=== PATIENT | male | born 1935 | race Caucasian/White ===

== ENCOUNTER → 2016-04-22 | Outpatient (CLI) | payer OTHER ==
[2016-04-22 17:31] LABS: BASO % 0.2 %; BASO ABS # 0.02 K/uL (0-0.2); COMPLETE YES; EOS % 1.1 %; HEMATOCRIT 41.5 % (42-52); IG% 0.2 %; LYMPH ABS # 3.02 K/uL (1.2-3.4); MEAN CELL VOLUME 93.7 fL (80-100); MEAN CORPUSCULAR HEMOGLOBIN 32.1 pg (25-34); MEAN CORPUSCULAR HGB CONC 34.2 g/dl (32-36); MEAN PLATELET VOLUME 10.3 fL (7.4-10.4); NEUT % 66.5 %; PLATELET COUNT 301 K/uL (130-400); RED BLOOD COUNT 4.43 M/uL (4.7-6.1)
[2016-04-22 17:35] LABS: ALT/SGPT 30 U/L (12-78); AST/SGOT 26 U/L (15-37); BLOOD UREA NITROGEN 21 mg/dl (7-18); BUN/CREATININE RATIO 18.8 (10-20); CALCIUM 9.1 mg/dl (8.5-10.1); CARBON DIOXIDE 28 mmol/L (21-32); CHLORIDE 104 mmol/L (98-107); GLUCOSE 83 mg/dl (70-99); POTASSIUM 3.8 mmol/L (3.5-5.1); SODIUM 141 mmol/L (136-145)
[2016-04-22 17:46] LABS: ALKALINE PHOSPHATASE 106 U/L (45-117); CHOLESTEROL 216 mg/dl (0-200); CHOLESTEROL/HDL RATIO 4.5; HDL CHOLESTEROL 48 mg/dl; LDL CHOLESTEROL CALCULATED 141 mg/dl; TRIGLYCERIDES 135 mg/dl (0-150); VERY LOW DENSITY LIPOPROT CALC 27 mg/dl
--- NOTE | 2016-05-03 09:53 | CODING QUERY MEDICAL NECESSITY ---
CQSUPPORTING DIAGNOSIS NEEDED A supporting diagnosis is required for the test/procedure performed on this patient in order for us to be reimbursed by the patient's insurance. Please provide a supporting diagnosis for the following test/procedure listed below next to the test name along with your signature. *If there is no additional diagnosis for this patient that would support the following test/procedure please document that below next to the test/procedure. Test(s)/Procedure(s) that require a supporting diagnosis: DOS 04/22/16 PROSTATE SPECIFIC TEST (PSA) Provider Signature: Date: Thank you [facility] Once completed, please kindly fax back to [phone] For questions please call [phone]
== END | disposition home or self-care (01) ==
LOC: C.LABPBG 14:57
PROVIDERS: ATTEND Neuromusculoskeletal Medicine & OMM
DX: Z00.00 Encounter for general adult medical examination without abnormal findings (principal); I10 Essential (primary) hypertension; Z12.5 Encounter for screening for malignant neoplasm of prostate

== ENCOUNTER → 2016-05-10 | Outpatient (CLI) | payer OTHER ==
--- NOTE | 2016-05-10 15:21 | ECHOCARDIOGRAM REPORT ---
*NOTICE TO RECEIVING [employer] This information is strictly Confidential and protected under [place] law. [place] law prohibits you from making any further disclosure of this information unless further disclosure is expressly permitted by the written consent of the person to whom it pertains or is authorized by law. A general authorization for the release of medical or other information is not sufficient for this purpose. Hospital accepts no responsibility if the information is made available to any other person, INCLUDING THE PATIENT. Interpretation Summary * Name: NIRANJAN WAGNER Study Date: 05/10/2016 01:19 PM BP: 179/66 mmHg * Patient Location: [facility] HR: 68 * : 1935 (M/d/yyyy) Gender: Male * Age: 81 yrs Ethnicity: [place] Weight: 165 lb * Ordering Physician: GERALD SHARPE DO * Performed By: Maura Sharpe/ Rema Fortune * * Reason For Study: CYSTOLIC EJECTION MURMUR * Hyperdynamic left ventricular systolic function. * Moderate concentric left ventricular hypertrophy. * Left ventricular diastolic dysfunction. * Mild aortic root diltation. * Moderate - Severe calcific aortic stenosis. * Trace aortic regurgitation. * Trace mitral and tricuspid regurgitation. * Mild pulmonary hypertension. 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 Procedure Details * A complete two-dimensional transthoracic echocardiogram was performed (2D, M-mode, Doppler and color flow Doppler). Left Ventricle * The left ventricle is normal in size. * There is moderate concentric left ventricular hypertrophy. * A full diastolic examination was done with clinical findings of Class I diastolic dysfunction. * Ejection Fraction = >70 %. * The left ventricle is hyperdynamic. * No regional wall motion abnormalities noted. Right Ventricle * The right ventricle is normal in size and function. Atria * The left atrial size is normal. * Right atrial size is normal. * No ASD detected; PFO is not assessed. Mitral Valve * There is mild mitral annular calcification. * There is no mitral valve stenosis. * There is trace mitral regurgitation. Tricuspid Valve * The tricuspid valve is normal. * There is no tricuspid stenosis. * There is trace tricuspid regurgitation. * Right ventricular systolic pressure is elevated at 30-40mmHg. Aortic Valve * The aortic valve is calcified and has decreased opening on 2 D imaging. * There is severe calcific aortic valve stenosis. * Aortic valve area was calculated at 1.3 cm\S\2 using the continuity equation. * Based on the appearance of the AV on 2 D imaging and the mean gradient across the valve there is severe aortic stenosis. * Moderate to severe valvular aortic stenosis. * Trace aortic regurgitation. Pulmonic Valve * The pulmonary valve is inadequately visualized, but the Doppler data is adequate for interpretation. * There is no pulmonic valvular stenosis. * There is no significant pulmonary regurgitation. Great Vessels * Mild aortic root dilatation. MMode 2D Measurements and Calculations IVSd 1.6 cm IVSs 2.3 cm LVIDd 4.0 cm LVIDs 2.5 cm LVPWd 1.5 cm LVPWs 2.3 cm IVS/LVPW 1.1 FS 37.5 % EDV(Teich) 71.6 ml ESV(Teich) 22.9 ml EF(Teich) 68.1 % EDV(cubed) 65.8 ml ESV(cubed) 16.1 ml EF(cubed) 75.6 % % IVS thick 44.8 % % LVPW thick 59.5 % LV mass(C)d 239.1 grams LV mass(C)s 287.5 grams SV(Teich) 48.7 ml SV(cubed) 49.7 ml Ao root diam 4.1 cm Ao root area 13.0 cm\S\2 ACS 1.3 cm LA dimension 3.6 cm asc Aorta Diam 3.3 cm LA/Ao 0.88 LVOT diam 2.2 cm LVOT area 3.7 cm\S\2 LVAd ap4 34.4 cm\S\2 LVLd ap4 8.8 cm EDV(MOD-sp4) 107.3 ml EDV(sp4-el) 114.1 ml LVAs ap4 15.0 cm\S\2 LVLs ap4 6.5 cm ESV(MOD-sp4) 33.6 ml ESV(sp4-el) 29.6 ml EF(MOD-sp4) 68.7 % EF(sp4-el) 74.1 % LVAd ap2 29.1 cm\S\2 LVLd ap2 9.1 cm EDV(MOD-sp2) 76.4 ml EDV(sp2-el) 78.9 ml LVAs ap2 13.6 cm\S\2 LVLs ap2 7.1 cm ESV(MOD-sp2) 23.6 ml ESV(sp2-el) 22.0 ml EF(MOD-sp2) 69.1 % EF(sp2-el) 72.1 % LVLd %diff 3.1 % EDV(MOD-bp) 89.4 ml LVLs %diff 9.2 % ESV(MOD-bp) 29.6 ml EF(MOD-bp) 66.8 % SV(MOD-sp4) 73.7 ml SV(MOD-sp2) 52.8 ml SV(MOD-bp) 59.8 ml SV(sp4-el) 84.5 ml SV(sp2-el) 56.8 ml Doppler Measurements and Calculations MV E max joo 94.5 cm/sec MV A max joo 109.7 cm/sec MV E/A 0.86 MV dec time 0.28 sec Ao V2 max 518.1 cm/sec Ao max PG 107.4 mmHg Ao max PG (full) 93.8 mmHg Ao V2 mean 332.1 cm/sec Ao mean PG 51.1 mmHg Ao V2 VTI 108.7 cm DALE(V,A) 1.3 cm\S\2 DALE(V,D) 1.3 cm\S\2 AI max joo 471.9 cm/sec AI max PG 89.3 mmHg AI dec slope 400.2 cm/sec\S\2 AI P1/2t 345.3 msec LV V1 max PG 13.6 mmHg LV V1 max 184.4 cm/sec MR max joo 726.9 cm/sec MR max PG 211.3 mmHg SV(Ao) 1410.8 ml PA V2 max 103.0 cm/sec PA max PG 4.2 mmHg TR max joo 269.8 cm/sec
== END | disposition home or self-care (01) ==
LOC: C.CPL 13:05
PROVIDERS: ATTEND Neuromusculoskeletal Medicine & OMM
DX: R01.1 Cardiac murmur, unspecified (principal)

== ENCOUNTER → 2017-05-20 | Outpatient (CLI) | payer OTHER ==
[2017-05-20 12:48] LABS: ALBUMIN 3.7 gm/dl (3.4-5.0); ALT/SGPT 31 U/L (12-78); AST/SGOT 30 U/L (15-37); BLOOD UREA NITROGEN 34 mg/dl (7-18); CALCIUM 9.2 mg/dl (8.5-10.1); CARBON DIOXIDE 29 mmol/L (21-32); CREATININE 1.27 mg/dl (0.60-1.40); GLUCOSE 102 mg/dl (70-99); POTASSIUM 3.7 mmol/L (3.5-5.1); SODIUM 137 mmol/L (136-145)
[2017-05-20 12:53] LABS: ALKALINE PHOSPHATASE 81 U/L (45-117); CHOLESTEROL 213 mg/dl (0-200); LDL CHOLESTEROL CALCULATED 150 mg/dl; TOTAL PROTEIN 7.8 gm/dl (6.4-8.2)
== END | disposition home or self-care (01) ==
LOC: C.LABPBG 07:58
PROVIDERS: ATTEND Neuromusculoskeletal Medicine & OMM
DX: Z00.00 Encounter for general adult medical examination without abnormal findings (principal); I12.9 Hypertensive chronic kidney disease with stage 1 through stage 4 chronic kidney disease, or unspecified chronic kidney disease; R97.20 Elevated prostate specific antigen [PSA]

== ENCOUNTER 2019-04-22 16:32 | Inpatient (IN) ==
[2019-04-22 17:06] LABS: Basophils # (auto) 0.02 K/uL (0-0.2); Basophils % (auto) 0.2 %; Eosinophils # (auto) 0.17 K/uL (0-0.5); Eosinophils % (auto) 1.6 %; Hematocrit (blood only) 35.8 % (42-52); Hemoglobin 11.7 g/dL (14.0-18.0); Immature Granulocytes # (auto) 0.02 K/uL (0.00-0.02); Immature Granulocytes % (auto) 0.2 %; Lymphocytes # (auto) 2.48 K/uL (1.2-3.4); Mean Corpuscular Hemoglobin 31.5 pg (25-34); Mean Corpuscular Hgb Conc 32.7 g/dL (32-36); Mean Corpuscular Volume 96.5 fL (80-100); Mean Platelet Volume 10.4 fL (7.4-10.4); Monocytes # (auto) 0.61 K/uL (0.11-0.59); Monocytes % (auto) 5.9 %; Neutrophils # (auto) 7.02 K/uL (1.4-6.5); Neutrophils % (auto) 68.1 %; Platelet Count 231 K/uL (130-400); RDW Coefficient of Variation 13.9 % (11.5-14.5); RDW Standard Deviation 48.7 fL (36.4-46.3); Red Blood Count 3.71 M/uL (4.7-6.1); White Blood Count 10.32 K/uL (4.8-10.8)
[2019-04-22] MEDS ORDERED: SODIUM CHLORIDE 0.9% 1000ML 500 ML IV ONE (17:07)
--- NOTE | 2019-04-22 17:07 | XRay Report ---
SINGLE VIEW CHEST CLINICAL HISTORY: Generalized weakness. FINDINGS: An AP, portable, upright chest radiograph is obtained. No prior studies are available for c omparison at the time of dictation. The examination is degraded by portable technique and patient rot ation. The heart is enlarged noting atherosclerotic calcification of the thoracic aorta. The pulmona ry vasculature is noncongested. There is mild elevation of right hemidiaphragm and bibasilar atelecta sis. No airspace consolidation or large pleural effusion is identified. No pneumothorax is seen. The skeletal structures are osteopenic. 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 Th ere are healed left-sided rib fractures. IMPRESSION: Cardiomegaly with no acute cardiopulmonary abnormality. ACT 112: Negative or not required by law. Electronically signed by: Dick Ness M.D. 04/22/2019 5:06 PM
[2019-04-22 17:14] LABS: INR 1.1 (0.9-1.1); Prothrombin Time 11.1 Seconds (9.0-12.0)
--- NOTE | 2019-04-22 17:18 | CT Scan Report ---
CT SCAN OF THE BRAIN WITHOUT IV CONTRAST CLINICAL HISTORY: Syncope. Change in mental status. COMPARISON STUDY: CT of the brain dated 02/09/2019. TECHNIQUE: Unenhanced axial CT scan of the brain is performed from the vertex to the skull base. A do se lowering technique was utilized adhering to the principles of ALARA. CT DOSE: 537.48 mGy.cm FINDINGS: Brain parenchyma: There are age-related involutional changes noting moderate to advanced subcortical and periventricular microangiopathic change. There is no hemorrhage, mass effect, or evidence of acu te territorial ischemia by CT criteria. Fitzpatrick-white matter differentiation is preserved. No extra-axia l fluid collection is seen. Ventricles, sulci, cisterns: Prominent secondary to involutional change. Intracranial vasculature: There is atherosclerotic calcification of the cavernous carotid arteries. Calvarium: Unremarkable. Sinuses and mastoids: The visualized paranasal sinuses are clear. The mastoid air cells are well pneu matized. Orbits: The bony orbits are grossly intact. IMPRESSION: There is no hemorrhage, mass effect, or evidence of acute territorial ischemia by CT komal alberto. ACT 112: Negative or not required by law. Electronically signed by: Dick Ness M.D. 04/22/2019 5:17 PM
[2019-04-22 17:24] LABS: Albumin Level 3.3 gm/dl (3.4-5.0); BUN Creatinine Ratio 17.2 (10-20); Calcium 9.1 mg/dl (8.5-10.1); Creatinine Clr Calc Pharmacy 51.2 ml/min; Est GFR (Non-African American) 51.8; Potassium 3.3 mmol/L (3.5-5.1)
[2019-04-22 17:35] LABS: Albumin Globulin Ratio 0.9 (0.9-2); Bilirubin,Total 0.4 mg/dl (0.2-1); Globulin 3.8 gm/dl (2.5-4.0); Thyroid Stimulating Hormone 3.49 uIu/ml (0.300-4.500); Total Protein 7.1 gm/dl (6.4-8.2); Troponin I 0.041 ng/ml (0-0.045)
[2019-04-22 18:00] LABS: Appearance Urine Cloudy (Clear); Bacteria Urine Automated Negative (Negative); Bilirubin Urine Negative (Negative); Blood Urine Negative (Negative); Color Urine Yellow; Glucose Urine UA Negative (Negative); Ketones Urine Negative (Negative); Leukocyte Esterase Urine Negative (Negative); Nitrite Urine Negative (Negative); Protein Urine Negative (Negative); RBC Urine Automated 0-4 /hpf (0-4); Specific Gravity Urine 1.014 (1.000-1.030); Urobilinogen Urine Negative (Negative)
[2019-04-22 20:25] LABS: Troponin I 0.192 ng/ml (0-0.045)
[2019-04-22] MEDS ORDERED: ASPIRIN 81 MG CHEW PO STA (20:35)
[2019-04-22] MEDS ORDERED: LORazepam 2 MG/4 ML VIAL ONE (20:43)
[2019-04-22] MEDS ORDERED: HALOPERIDOL LACTATE 5 MG/ML 1 ML VIAL ONE (20:44)
[2019-04-22] MEDS ORDERED: HALOPERIDOL LACTATE 5 MG/ML 1 ML VIAL IV STA (21:13)
[2019-04-22] MEDS ORDERED: LORazepam 2 MG/4 ML VIAL IV STA (21:13)
--- NOTE | 2019-04-22 21:54 | Emergency Department Note ---
Entered by Shahriar Aponte acting as a scribe for Les Santoro M.D. History of Present Illness General Chief complaint: Altered Mental Status Stated complaint: AMS Time Seen by Provider: 04/22/19 16:35 Source: patient and family (daughter) History of Present Illness Onset (ago): hour(s) (earlier today) Location: head (AMS) Pain Consistency: + other (worsening) Relieved By: + none Associated symptoms: + denies other symptoms (pain) and + other (shaking, fitzpatrick i n appearance, drooling) The patient is a 84 year old M who presents to the Emergency Room with complaints of worsening altered mental status that occurred earlier today. The HPI was provided by the patients daughter. The patients daughter states that the patient lives by himself. She notes that today, she decided to walk the patient to her house which is 5 blocks away. She states that after walking, the patient told her that he was not feeling well. She notes that the patient was o ff balance. She adds that the patient looked fitzpatrick, was drooling, and was shaking. She states that the patient almost fell so she caught the patient and laid him on the ground. She denies that the patient hit his head. She notes that the patient has a history of dementia, hallucinations, and aortic stenosis. The patient states that it is hard to remember what happened. He adds that he remember walking. He notes that he has never passed out from walking. He denies that he is currently experiencing pain. The HPI is limited due to the patients history of dementia. Home Medications Home Medications Medication Instructions Recorded Confirmed Type multivitamin 1 tab PO QAM #30 tab 11/06/18 04/22/19 Rx aspirin [Adult Low Dose Aspirin] 81 mg PO QAM 04/22/19 04/22/19 History donepezil 5 mg PO QAM 04/22/19 04/22/19 History furosemide 40 mg PO QAM 04/22/19 04/22/19 History lisinopril 30 mg PO QAM 04/22/19 04/22/19 History Allergies Allergy/AdvReac Type Severity Reaction Status Date / Time No Known Allergies Allergy Verified 04/22/19 18:39 Past Med/Surg History Social History Preferred Language: [place] Communication Ability: Effective Visual Impairment: Limited Hearing Ability: Normal Beliefs That Will Affect Care: None marital status: / Current Living Situation: Alone current occupational status: retired Feels Safe at Home: Yes Smoking Status: Unknown if ever smoked Hx Alcohol Use: No Hx Substance Use: No Childhood Exposure to Second-Hand Smoke: Yes caffeine: No during the past year weight has: remained stable Dental Care, Regularly: Yes Physical Activity Frequency: Does not Exercise Seatbelt Use: always Sunscreen Use: Yes Review of Systems See HPI for pertinent positives & negatives. The ROS is limited due to the patients history of dementia. Physical Exam Vital Signs Vital Signs - 24 hr 04/22/19 16:30 04/22/19 16:36 04/22/19 16:43 Temperature 36.3 C L Temperature Source Oral Pulse Rate 65 67 Pulse Rate from SpO2 Sensor 60 Pulse Rhythm Regular Pulse Strength Normal Respiratory Rate 20 18 Respiratory Effort / Characteristics Non-Labored Spontaneous Respiratory Depth Normal Respiratory Pattern Regular Blood Pressure 125/60 125/60 Blood Pressure Mean 81 89 Blood Pressure Position Lying Pulse Oximetry 95 96 98 Oxygen Delivery Method Room Air Room Air Sepsis Recent Fever Within 48 Hours No Sepsis New/Unexplained Change in Mental Status No Sepsis Action Taken by Nursing No Action Required 04/22/19 17:00 04/22/19 18:00 04/22/19 19:02 Temperature Temperature Source Pulse Rate 70 69 68 Pulse Rate from SpO2 Sensor 71 69 69 Pulse Rhythm Pulse Strength Respiratory Rate 23 17 18 Respiratory Effort / Characteristics Respiratory Depth Respiratory Pattern Blood Pressure 116/56 L 94/41 L 110/56 L Blood Pressure Mean 88 51 70 Blood Pressure Position Pulse Oximetry 99 98 96 Oxygen Delivery Method Sepsis Recent Fever Within 48 Hours Sepsis New/Unexplained Change in Mental Status Sepsis Action Taken by Nursing 04/22/19 19:30 04/22/19 20:00 04/22/19 20:15 Temperature Temperature Source Pulse Rate 56 L 61 61 Pulse Rate from SpO2 Sensor 57 L Pulse Rhythm Pulse Strength Respiratory Rate 16 17 18 Respiratory Effort / Characteristics Respiratory Depth Respiratory Pattern Blood Pressure 122/58 L 142/57 H Blood Pressure Mean 87 65 Blood Pressure Position Pulse Oximetry 94 Oxygen Delivery Method Sepsis Recent Fever Within 48 Hours Sepsis New/Unexplained Change in Mental Status Sepsis Action Taken by Nursing 04/22/19 20:30 04/22/19 20:50 04/22/19 20:58 Temperature Temperature Source Pulse Rate 64 Pulse Rate from SpO2 Sensor Pulse Rhythm Pulse Strength Respiratory Rate 16 28 H 25 H Respiratory Effort / Characteristics Respiratory Depth Respiratory Pattern Blood Pressure 144/58 H 95/46 L Blood Pressure Mean 95 60 Blood Pressure Position Pulse Oximetry Oxygen Delivery Method Sepsis Recent Fever Within 48 Hours Sepsis New/Unexplained Change in Mental Status Sepsis Action Taken by Nursing 04/22/19 21:00 04/22/19 21:01 04/22/19 21:15 Temperature Temperature Source Pulse Rate 66 57 L Pulse Rate from SpO2 Sensor 71 Pulse Rhythm Pulse Strength Respiratory Rate 18 20 17 Respiratory Effort / Characteristics Respiratory Depth Respiratory Pattern Blood Pressure 116/50 L Blood Pressure Mean 65 Blood Pressure Position Pulse Oximetry 93 Oxygen Delivery Method Sepsis Recent Fever Within 48 Hours Sepsis New/Unexplained Change in Mental Status Sepsis Action Taken by Nursing GENERAL: Awake, alert, well-appearing, in no distress HENT: Normocephalic, atraumatic. EYES: Normal conjunctiva. Sclera non-icteric. NECK: Supple. No nuchal rigidity. RESPIRATORY: Clear to auscultation. No wheezes. Normal respiratory effort. CARDIAC: Normal rate. Normal rhythm. Extremities warm and well perfused. GI: Soft, non-distended. No tenderness to palpation. MUSCULOSKELETAL: Atraumatic. Chest examination reveals no tenderness. LOWER EXTREMITIES: Calves are equal size bilaterally and non-tender. No edema NEURO: Alert, no slurred speech, pleasant. Oriented to birthday and person. Not oriented to event, place, or time. No gross sensory or motor deficits noted. SKIN: Warm and dry. No rash or jaundice noted. Course Course 1635: The patient was evaluated in room C7. A complete history and physical exam was performed. 2031: I updated the patient and his daughter on his test results and plan for admission. They were agreeable with the plan. 2040: I reviewed the patient's case with Dr. Nicki Richmond, [facility] Hospitalist. She will evaluate the patient for further management. 2052: The patient started to get combative. Chemical restraints were used on the patient. Administered Medications Discontinued Medications Aspirin (Aspirin Chew) 324 mg PO NOW STA Stop: 04/22/19 20:36 Last Admin: 04/22/19 20:59 Dose: 324 mg Documented by: [id number] Haloperidol Lactate (Haldol) Confirm Administered Dose 10 mg .ROUTE .K-MED ONE Stop: 04/22/19 20:45 Last Admin: 04/22/19 20:55 Dose: 2.5 mg Documented by: [id number] Haloperidol Lactate (Haldol) 2.5 mg IV NOW STA Stop: 04/22/19 21:14 Last Admin: 04/22/19 21:17 Dose: Not Given Documented by: [id number] Sodium Chloride (Nss 1000ml) 500 mls @ 999 mls/hr IV .Q31M ONE Stop: 04/22/19 17:37 Last Infusion: 04/22/19 17:55 Dose: 0 mls/hr Documented by: [id number] Admin: 04/22/19 17:19 Dose: 999 mls/hr Documented by: [id number] Lorazepam (Ativan) 2 mg in 4 mls @ 4 mls/min IV NOW STA Stop: 04/22/19 21:14 Last Admin: 04/22/19 21:17 Dose: Not Given Documented by: [id number] Lorazepam (Ativan) Confirm Administered Dose 2 mg .ROUTE .STK-MED ONE Stop: 04/22/19 20:44 Last Admin: 04/22/19 20:47 Dose: 2 mg Documented by: [id number] Critical Care Time Critical Care Time: Yes Total Critical Care Time: 50 I have personally spent 50 minutes of critical care time in the direct management of this patient. This includes bedside care, interpretation of diagnostic studies, and testing, discussion with consultants, patient, and family members, and other required patient management activities. This 50 minutes is in excess of all separately billable procedures. Medical Decision Making Differential Diagnosis Differential diagnosis: Etiologies such as vasovagal event, infection, hypoglycemia, electrolyte abnormalities, cardiac sources, intracerebral event, toxicologic, neurologic, as well as others were entertained. Medical Records Attestation: I reviewed the patient's medical records. Home Medications Current Medication List: was personally reviewed by me Laboratory Data Attestation: I reviewed the patient's lab results. Result diagrams: 04/22/19 16:52 04/22/19 16:52 Lab Results 04/22/19 04/22/19 04/22/19 Range/Units 16:52 16:52 16:52 WBC 10.32 (4.8-10.8) K/uL RBC 3.71 L (4.7-6.1) M/uL Hgb 11.7 L (14.0-18.0) g/dL Hct 35.8 L (42-52) % MCV 96.5 (80-100) fL MCH 31.5 (25-34) pg MCHC 32.7 (32-36) g/dL RDW Std Deviation 48.7 H (36.4-46.3) fL RDW Coeff of Rk 13.9 (11.5-14.5) % Plt Count 231 (130-400) K/uL MPV 10.4 (7.4-10.4) fL Immature Gran % (Auto) 0.2 % Neut % (Auto) 68.1 % Lymph % (Auto) 24.0 % Ross % (Auto) 5.9 % Eos % (Auto) 1.6 % Baso % (Auto) 0.2 % Immature Gran # (Auto) 0.02 (0.00-0.02) K/uL Neut # (Auto) 7.02 H (1.4-6.5) K/uL Lymph # (Auto) 2.48 (1.2-3.4) K/uL Ross # (Auto) 0.61 H (0.11-0.59) K/uL Eos # (Auto) 0.17 (0-0.5) K/uL Baso # (Auto) 0.02 (0-0.2) K/uL PT 11.1 (9.0-12.0) Seconds INR 1.1 (0.9-1.1) Sodium 144 (136-145) mmol/L Potassium 3.3 L (3.5-5.1) mmol/L Chloride 108 H (98-107) mmol/L Carbon Dioxide 30 (21-32) mmol/L Anion Gap 5.0 (3-11) BUN 22 H (7-18) mg/dl Creatinine 1.28 (0.6-1.4) mg/dl Est Cr Clr Drug Dosing 51.2 ml/min Est GFR ( Amer) 60.0 Est GFR (Non-Af Amer) 51.8 BUN/Creatinine Ratio 17.2 (10-20) Glucose 96 (70-99) mg/dl Lactate (0.4-2.0) mmol/L Calcium 9.1 (8.5-10.1) mg/dl Magnesium 2.0 (1.8-2.4) mg/dl Total Bilirubin 0.4 (0.2-1) mg/dl AST 30 (15-37) U/L ALT 24 (12-78) U/L Alkaline Phosphatase 87 (45-117) U/L Troponin I 0.041 (0-0.045) ng/ml Total Protein 7.1 (6.4-8.2) gm/dl Albumin 3.3 L (3.4-5.0) gm/dl Globulin 3.8 (2.5-4.0) gm/dl Albumin/Globulin Ratio 0.9 (0.9-2) TSH 3.490 (0.300-4.500) uIu/ml Urine Color Urine Appearance (Clear) Urine pH (4.5-7.5) Ur Specific [place] (1.000-1.030) Urine Protein (Negative) Urine Glucose (UA) (Negative) Urine Ketones (Negative) Urine Blood (Negative) Urine Nitrite (Negative) Urine Bilirubin (Negative) Urine Urobilinogen (Negative) Ur Leukocyte Esterase (Negative) Urine WBC (Auto) (0-5) /hpf Urine RBC (Auto) (0-4) /hpf U Hyaline Cast (Auto) (0-5) /lpf U Epithel Cells (Auto) (0-5) /lpf Urine Bacteria (Auto) (Negative) 04/22/19 04/22/19 04/22/19 Range/Units 16:52 17:31 19:03 WBC (4.8-10.8) K/uL RBC (4.7-6.1) M/uL Hgb (14.0-18.0) g/dL Hct (42-52) % MCV (80-100) fL MCH (25-34) pg MCHC (32-36) g/dL RDW Std Deviation (36.4-46.3) fL RDW Coeff of Rk (11.5-14.5) % Plt Count (130-400) K/uL MPV (7.4-10.4) fL Immature Gran % (Auto) % Neut % (Auto) % Lymph % (Auto) % Ross % (Auto) % Eos % (Auto) % Baso % (Auto) % Immature Gran # (Auto) (0.00-0.02) K/uL Neut # (Auto) (1.4-6.5) K/uL Lymph # (Auto) (1.2-3.4) K/uL Ross # (Auto) (0.11-0.59) K/uL Eos # (Auto) (0-0.5) K/uL Baso # (Auto) (0-0.2) K/uL PT (9.0-12.0) Seconds INR (0.9-1.1) Sodium (136-145) mmol/L Potassium (3.5-5.1) mmol/L Chloride (98-107) mmol/L Carbon Dioxide (21-32) mmol/L Anion Gap (3-11) BUN (7-18) mg/dl Creatinine (0.6-1.4) mg/dl Est Cr Clr Drug Dosing ml/min Est GFR ( Amer) Est GFR (Non-Af Amer) BUN/Creatinine Ratio (10-20) Glucose (70-99) mg/dl Lactate 1.7 (0.4-2.0) mmol/L Calcium (8.5-10.1) mg/dl Magnesium (1.8-2.4) mg/dl Total Bilirubin (0.2-1) mg/dl AST (15-37) U/L ALT (12-78) U/L Alkaline Phosphatase (45-117) U/L Troponin I 0.192 H* (0-0.045) ng/ml Total Protein (6.4-8.2) gm/dl Albumin (3.4-5.0) gm/dl Globulin (2.5-4.0) gm/dl Albumin/Globulin Ratio (0.9-2) TSH (0.300-4.500) uIu/ml Urine Color Yellow Urine Appearance Cloudy A (Clear) Urine pH 8.0 H (4.5-7.5) Ur Specific [place] 1.014 (1.000-1.030) Urine Protein Negative (Negative) Urine Glucose (UA) Negative (Negative) Urine Ketones Negative (Negative) Urine Blood Negative (Negative) Urine Nitrite Negative (Negative) Urine Bilirubin Negative (Negative) Urine Urobilinogen Negative (Negative) Ur Leukocyte Esterase Negative (Negative) Urine WBC (Auto) 1-5 (0-5) /hpf Urine RBC (Auto) 0-4 (0-4) /hpf U Hyaline Cast (Auto) 1-5 (0-5) /lpf U Epithel Cells (Auto) 10-20 H (0-5) /lpf Urine Bacteria (Auto) Negative (Negative) Imaging Data Radiologist's Impression: Radiology results as stated below per my review and the radiologist's interpretation: SINGLE VIEW CHEST CLINICAL HISTORY: Generalized weakness. FINDINGS: An AP, portable, upright chest radiograph is obtained. No prior studies are available for comparison at the time of dictation. The examination is degraded by portable technique and patient rotation. The heart is enlarged noting atherosclerotic calcification of the thoracic aorta. The pulmonary vas culature is noncongested. There is mild elevation of right hemidiaphragm and bibasilar atelectasis. No airspace consolidation or large pleural effusion is identified. No pneumothorax is seen. The skeletal structures are osteopenic. 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 There are healed left-sided rib fractures. IMPRESSION: Cardiomegaly with no acute cardiopulmonary abnormality. ACT 112: Negative or not required by law. Electronically signed by: Dick Ness M.D. 04/22/2019 5:[address] SCAN OF THE BRAIN WITHOUT IV CONTRAST CLINICAL HISTORY: Syncope. Change in mental status. COMPARISON STUDY: CT of the brain dated 02/09/2019. TECHNIQUE: Unenhanced axial CT scan of the brain is performed from the vertex to the skull base. A dose lowering technique was utilized adhering to the principles of ALARA. CT DOSE: 537.48 mGy.cm FINDINGS: Brain parenchyma: There are age-related involutional changes noting moderate to advanced subcortical and periventricular microangiopathic change. There is no hemorrhage, mass effect, or evidence of acute territorial ischemia by CT criteria. Fitzpatrick-white matter differentiation is preserved. No extra-axial fluid collection is seen. Ventricles, sulci, cisterns: Prominent secondary to involutional change. Intracranial vasculature: There is atherosclerotic calcification of the cav ernous carotid arteries. Calvarium: Unremarkable. Sinuses and mastoids: The visualized paranasal sinuses are clear. The mastoid air cells are well pneumatized. Orbits: The bony orbits are grossly intact. IMPRESSION: There is no hemorrhage, mass effect, or evidence of acute territorial ischemia by CT criteria. ACT 112: Negative or not required by law. Electronically signed by: Dick Ness M.D. 04/22/2019 5:17 PM ECG Data Attestation: I personally reviewed and interpreted this ECG as follows: Indication: + altered mental status Rate (beats per minute): 64 Rhythm: + sinus rhythm ECG Intervals/blocks: + First degree AV block and + Normal QT-c ECG ST segments: + T-wave inversions (aVL and V6); no ST elevation ECG Findings: no PVCs Comparison ECG Date: no prior available Additional Comments: 1899: second EKG: rate of 69 bpm, sinus rhythm with 1st degree AV block. No significant change from earlier EKG. Blood Pressure Blood Pressure Findings: Elevated blood pressure Blood Pressure Disposition: further management by hospitalist SERENE Crowe Continuous Cardiac Monitoring: An order was placed for continuous cardiac monitoring. The monitor shows a rate of 68 with NSR. Patient is a 84-year-old gentleman with a history of aortic stenosis, chronic kidney disease, hypertension, and dementia presented today via ambulance after a syncopal episode at home. Evidently walking with a family member outside she looked back and he was reaching for things in front of him that were not there then jerked several times went limp and fell to the ground looking pale. EMS was called. Upon arrival the patient was awake and following commands. This lasted maybe several minutes. EMS states he is otherwise been alert and pleasant for them. Limited history from the patient due to his underlying dementia. Has a history of hallucinations. Patient otherwise well recently. No significant trauma as failure state they lowered him to the ground. CT head without acute findings. Basic labs completed here without significant abnormalities. No significant finding on urinalysis. A detectable troponin is noted without significant prior values however with his renal dysfunction does not seem all that atypical. EKG questions may be some T wave inversions versus lateral ST depression. Patient again asymptomatic. Patient seems back at baseline at this point. I doubt this represents acute PE. Does not seem consistent with seizure. Possible cardiac syncope but continues cardiac monitoring here did not identify any significant abnormality. No significant thyroid dysfunction. Magnesium was normal limits. Potassium within normal limits. No evidence of acute kidney injury. Patient given again IV fluids. Delta troponin and EKG of 2 hours was completed. EKG appears unchanged however the troponin did elevate. Still denies CP/SOB. Given aspirin. Concerned this co uld represent again further cardiac etiology. Believe further inpatient treatments are needed and family is in agreement. Patient with his dementia however does not seem to quite understand and began to try to get out of bed and come after staff. For his and staff safety patient received Ativan and Haldol with improvement and he was redirected to the bed. Took 324mg aspirin. Will defer additional full anticoagulation with heparin at this time given his fall and safety risk. One-to-one will be needed. Discussed with the hospitalist who will evaluate further inpatient treatment. Impression & Plan Non-ST elevation [place] (NSTEMI), Syncope, Combative behavior Discharge Plan Visit Data Chief Complaint: Altered Mental Status Stated Complaint: [facility] ED Provider: Les Santoro Discharge Problem: Non-ST elevation [place] (NSTEMI), Syncope, Combative behavior Discharge Instructions Interventions: ED Discharge Assessment Last Done: 04/22/19 21:40 Discharge Problem: Syncope Qualifiers: Syncope type: unspecified Qualified Code(s): R55 - Syncope and collapse The scribe's documentation has been prepared under my direction and personally reviewed by me in its entirety. I confirm that the note above accurately reflects all work, treatment, procedures, and medical decision making performed by me.
[2019-04-22] MEDS ORDERED: ACETAMINOPHEN 325 MG TAB PO PRN (21:58)
[2019-04-22] MEDS ORDERED: DOCUSATE SODIUM 100 MG CAP PO PRN (21:58)
[2019-04-22] MEDS ORDERED: POTASSIUM CHLORIDE 20 MEQ TABCR PO ONE (22:15)
[2019-04-22] MEDS: LACTATED RINGER'S 1,000 ML IV SCH (22:16)
[2019-04-22 22:20] LABS: Phosphorus 2.3 mg/dl (2.5-4.9)
--- NOTE | 2019-04-22 22:24 | History & Physical Report ---
Date of Service April 22, 2019 Assessment & Plan (1) Syncope: 84-year-old male with history of hypertension, hyperlipidemia, severe aortic stenosis, dementia and CKD presenting after syncopal event at home. Patient appears to be delirious and combative, elevated troponin. Concern for acute cardiac event versus syncope secondary to severe aortic stenosis versus vasovagal or orthostatic cause. Admit to medical floor with telemetry monitoring Check orthostatic vital signs Check 2D echo Trend troponin as below Present on Admission?: Yes (2) Elevated troponin: Troponin = 0 0.041-0.192. Patient with nonspecific ST changes on EKG. He is presently denying chest pain although he does not provide an accurate history. He was given 324 mg of aspirin in the ER. Telemetry monitoring Continue aspirin 81 mg p.o. daily Continue to trend troponin EKG with chest pain 2D echo as above Consider cardiology consultation pending results Present on Admission?: Yes (3) Chronic kidney disease, stage 3 (moderate): BUN = 22, creatinine = 1.28. These values are near baseline. Patient appears euvolemic on exam, electrolytes susceptible Continue to monitor BUN, creatinine, urine output and electrolytes Avoid nephrotoxic agents Renal dosing were needed Present on Admission?: Yes (4) Benign essential hypertension: Blood pressure mildly elevated 162/57 Continue lisinopril 30 mg p.o. every morning Continue to monitor Present on Admission?: Yes (5) Dementia: Patient with dementia, appears to be delirious in the ER, combative behavior. He was administered Haldol and Ativan which improved symptoms. CT head negative, electrolytes fairly normal, TSH within normal limits, UA negative Continue Aricept 5 mg p.o. every morning Delirium prevention strategies We will provide medication as needed for agitation competitive with care Present on Admission?: Yes (6) Hyperlipidemia: Chronic. Stable. Patient presently not on any medications Present on Admission?: Yes (7) Severe aortic stenosis: Chronic. Last echocardiogram performed by Dr. Patrick on 05/10/2016 revealed hyperdynamic LV, moderate concentric LVH, LV diastolic dysfunction, mild aortic root dilatation, severe calcific aortic stenosis with aortic valve area calculated at 1.3cm/S.2, trace aortic regurg. Patient had what sounds to be an exertional syncopal event concerning for advanced 2D echo as above Maintain euvolemic state F/e/n -LR at 80 mL/h x 1 liter, K repletion with 40 mEq p.o., heart healthy diet as tolerated Prophylaxislow risk for DVT CodeDNR/DNI per discussion with family Dispositionobservation to medical floor with telemetry Present on Admission?: Yes History of Present Illness Chief Complaint: Syncope, altered mental status Primary Care Provider: Cristina Eden DO Kael Garcia is an 84yo male with hypertension, CKD, hyperlipidemia, aortic stenosis and severe dementia. He presents today with his family after having a syncopal event at home. Patient was walking around the neighborhood with his son and ttowepov-op-eyt. He stated he could not walk any further and put his hand on his chest. Then he reportedly turned fitzpatrick and collapsed. His fmeaqypr-nv-anj was able to catch him and lowered him gently to the ground. Patient did not hit his head. He had loss of consciousness for about 5 to 10 minutes. No seizure activity or incontinence reported. Patient has no recollection of this event and is unable to provide details of history. Patient has fairly severe dementia, MOCA score of 5 in the past. He is to undergo more in-depth evaluation with neurology at the end of the month. Presently, he lives at home alone. He has support of family members. His xctljjka-jz-bby reports that he wanders around the neighborhood fairly frequent ly. On arrival to the ER he was found to be afebrile, hemodynamically stable. He became acutely combative in the ER requiring Haldol and Ativan ER course: Aspirin 325 mg, Haldol 2.5 mg IV, Ativan 2 mg IV, normal saline x500 mL bolus Allergies Allergy/AdvReac Type Severity Reaction Status Date / Time No Known Allergies Allergy Verified 04/22/19 18:39 Home Medications Home Medications Medication Instructions Recorded Confirmed Type multivitamin 1 tab PO QAM #30 tab 11/06/18 04/22/19 Rx aspirin [Adult Low Dose Aspirin] 81 mg PO QAM 04/22/19 04/22/19 History donepezil 5 mg PO QAM 04/22/19 04/22/19 History furosemide 40 mg PO QAM 04/22/19 04/22/19 History lisinopril 30 mg PO QAM 04/22/19 04/22/19 History Past Med/Surg History Social History Preferred Language: Urdu Communication Ability: Effective Visual Impairment: Limited Hearing Ability: Normal Beliefs That Will Affect Care: None marital status: / Current Living Situation: Alone current occupational status: retired Feels Safe at Home: Yes Smoking Status: Unknown if ever smoked Hx Alcohol Use: No Hx Substance Use: No Childhood Exposure to Second-Hand Smoke: Yes caffeine: No during the past year weight has: remained stable Dental Care, Regularly: Yes Physical Activity Frequency: Does not Exercise Seatbelt Use: always Sunscreen Use: Yes Review of Systems Review of Systems: Unobtainable due to cognitive status Physical Exam Physical Exam: General: Elderly male, trying to get out of bed, no acute distress, awake alert and oriented only to self Skin: warm, dry, intact, no rashes or lesions HEENT: NC/AT, PERRL, anicteric sclera, conjunctiva without injection, external ear normal to inspection and nontender, nares patent, moist mucus membranes, dentition intact, no oropharyngeal lesions, neck supple, trachea midline, no LAD, no thyromegaly, no JVD Heart: +S1/S2, regular, 3/6 systolic ejection murmur at left sternal border Lungs: equal air entry bilaterally, no rales/rhonchi/wheezes Abd: +BS, soft, NT/ND, no masses/organomegaly/ascites Ext: warm, 2+ pulses in UE/LE bilaterally, no clubbing/cyanosis or edema Neuro: Patient awake alert and oriented to self, moving all extremities with equal strength, no facial droop, speaking nonsensically and grasping at the air Results & Data Vital Signs (Past 12 Hours) Vital Signs Temp Pulse Pulse Resp BP BP Pulse Ox 04/22/19 21:33 36.8 C 55 L 16 104/33 L 96 04/22/19 21:15 57 L 17 04/22/19 21:01 66 20 116/50 L 04/22/19 21:00 18 93 04/22/19 20:58 25 H 95/46 L 04/22/19 20:50 28 H 04/22/19 20:30 64 16 144/58 H 04/22/19 20:15 61 18 04/22/19 20:00 61 17 142/57 H 04/22/19 19:30 56 L 16 122/58 L 94 03/08/20 19:02 68 18 110/56 L 96 04/22/19 18:00 69 17 94/41 L 98 04/22/19 17:00 70 23 116/56 L 99 04/22/19 16:43 98 04/22/19 16:36 67 18 125/60 96 04/22/19 16:30 36.3 C L 65 20 125/60 95 Laboratory Results Lab Results 04/22/19 04/22/19 04/22/19 Range/Units 16:52 16:52 16:52 WBC 10.32 (4.8-10.8) K/uL RBC 3.71 L (4.7-6.1) M/uL Hgb 11.7 L (14.0-18.0) g/dL Hct 35.8 L (42-52) % MCV 96.5 (80-100) fL MCH 31.5 (25-34) pg MCHC 32.7 (32-36) g/dL RDW Std Deviation 48.7 H (36.4-46.3) fL RDW Coeff of Rk 13.9 (11.5-14.5) % Plt Count 231 (130-400) K/uL MPV 10.4 (7.4-10.4) fL Immature Gran % (Auto) 0.2 % Neut % (Auto) 68.1 % Lymph % (Auto) 24.0 % [place] % (Auto) 5.9 % Eos % (Auto) 1.6 % Baso % (Auto) 0.2 % Immature Gran # (Auto) 0.02 (0.00-0.02) K/uL Neut # (Auto) 7.02 H (1.4-6.5) K/uL Lymph # (Auto) 2.48 (1.2-3.4) K/uL [place] # (Auto) 0.61 H (0.11-0.59) K/uL Eos # (Auto) 0.17 (0-0.5) K/uL Baso # (Auto) 0.02 (0-0.2) K/uL PT 11.1 (9.0-12.0) Seconds INR 1.1 (0.9-1.1) Sodium 144 (136-145) mmol/L Potassium 3.3 L (3.5-5.1) mmol/L Chloride 108 H (98-107) mmol/L Carbon Dioxide 30 (21-32) mmol/L Anion Gap 5.0 (3-11) BUN 22 H (7-18) mg/dl Creatinine 1.28 (0.6-1.4) mg/dl Est Cr Clr Drug Dosing 51.2 ml/min Est GFR ( Amer) 60.0 Est GFR (Non-Af Amer) 51.8 BUN/Creatinine Ratio 17.2 (10-20) Glucose 96 (70-99) mg/dl Lactate (0.4-2.0) mmol/L Calcium 9.1 (8.5-10.1) mg/dl Magnesium 2.0 (1.8-2.4) mg/dl Total Bilirubin 0.4 (0.2-1) mg/dl AST 30 (15-37) U/L ALT 24 (12-78) U/L Alkaline Phosphatase 87 (45-117) U/L Troponin I 0.041 (0-0.045) ng/ml Total Protein 7.1 (6.4-8.2) gm/dl Albumin 3.3 L (3.4-5.0) gm/dl Globulin 3.8 (2.5-4.0) gm/dl Albumin/Globulin Ratio 0.9 (0.9-2) TSH 3.490 (0.300-4.500) uIu/ml Urine Color Urine Appearance (Clear) Urine pH (4.5-7.5) Ur Specific [place] (1.000-1.030) Urine Protein (Negative) Urine Glucose (UA) (Negative) Urine Ketones (Negative) Urine Blood (Negative) Urine Nitrite (Negative) Urine Bilirubin (Negative) Urine Urobilinogen (Negative) Ur Leukocyte Esterase (Negative) Urine WBC (Auto) (0-5) /hpf Urine RBC (Auto) (0-4) /hpf U Hyaline Cast (Auto) (0-5) /lpf U Epithel Cells (Auto) (0-5) /lpf Urine Bacteria (Auto) (Negative) 04/22/19 04/22/19 04/22/19 Range/Units 16:52 17:31 19:03 WBC (4.8-10.8) K/uL RBC (4.7-6.1) M/uL Hgb (14.0-18.0) g/dL Hct (42-52) % MCV (80-100) fL MCH (25-34) pg MCHC (32-36) g/dL RDW Std Deviation (36.4-46.3) fL RDW Coeff of Rk (11.5-14.5) % Plt Count (130-400) K/uL MPV (7.4-10.4) fL Immature Gran % (Auto) % Neut % (Auto) % Lymph % (Auto) % [place] % (Auto) % Eos % (Auto) % Baso % (Auto) % Immature Gran # (Auto) (0.00-0.02) K/uL Neut # (Auto) (1.4-6.5) K/uL Lymph # (Auto) (1.2-3.4) K/uL [place] # (Auto) (0.11-0.59) K/uL Eos # (Auto) (0-0.5) K/uL Baso # (Auto) (0-0.2) K/uL PT (9.0-12.0) Seconds INR (0.9-1.1) Sodium (136-145) mmol/L Potassium (3.5-5.1) mmol/L Chloride (98-107) mmol/L Carbon Dioxide (21-32) mmol/L Anion Gap (3-11) BUN (7-18) mg/dl Creatinine (0.6-1.4) mg/dl Est Cr Clr Drug Dosing ml/min Est GFR ( Amer) Est GFR (Non-Af Amer) BUN/Creatinine Ratio (10-20) Glucose (70-99) mg/dl Lactate 1.7 (0.4-2.0) mmol/L Calcium (8.5-10.1) mg/dl Magnesium (1.8-2.4) mg/dl Total Bilirubin (0.2-1) mg/dl AST (15-37) U/L ALT (12-78) U/L Alkaline Phosphatase (45-117) U/L Troponin I 0.192 H* (0-0.045) ng/ml Total Protein (6.4-8.2) gm/dl Albumin (3.4-5.0) gm/dl Globulin (2.5-4.0) gm/dl Albumin/Globulin Ratio (0.9-2) TSH (0.300-4.500) uIu/ml Urine Color Yellow Urine Appearance Cloudy A (Clear) Urine pH 8.0 H (4.5-7.5) Ur Specific [place] 1.014 (1.000-1.030) Urine Protein Negative (Negative) Urine Glucose (UA) Negative (Negative) Urine Ketones Negative (Negative) Urine Blood Negative (Negative) Urine Nitrite Negative (Negative) Urine Bilirubin Negative (Negative) Urine Urobilinogen Negative (Negative) Ur Leukocyte Esterase Negative (Negative) Urine WBC (Auto) 1-5 (0-5) /hpf Urine RBC (Auto) 0-4 (0-4) /hpf U Hyaline Cast (Auto) 1-5 (0-5) /lpf U Epithel Cells (Auto) 10-20 H (0-5) /lpf Urine Bacteria (Auto) Negative (Negative) Diagnostic Findings SINGLE VIEW CHEST CLINICAL HISTORY: Generalized weakness. FINDINGS: An AP, portable, upright chest radiograph is obtained. No prior studies are available for comparison at the time of dictation. The examination is degraded by portable technique and patient rotation. The heart is enlarged noting atherosclerotic calcification of the thoracic aorta. The pulmonary vasculature is noncongested. There is mild elevation of right hemidiaphragm and bibasilar atelectasis. No airspace consolidation or large pleural effusion is identified. No pneumothorax is seen. The skeletal structures are osteopenic. 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 There are healed left-sided rib fractures. IMPRESSION: Cardiomegaly with no acute cardiopulmonary abnormality. ACT 112: Negative or not required by law. Electronically signed by: Dick Ness M.D. 04/22/2019 5:06 PM Dictated: 04/22/191704 Transcribed: 04/22/191704 CT SCAN OF THE BRAIN WITHOUT IV CONTRAST CLINICAL HISTORY: Syncope. Change in mental status. COMPARISON STUDY: CT of the brain dated 02/09/2019. TECHNIQUE: Unenhanced axial CT scan of the brain is performed from the vertex to the skull base. A dose lowering technique was utilized adhering to the principles of ALARA. CT DOSE: 537.48 mGy.cm FINDINGS: Brain parenchyma: There are age-related involutional changes noting moderate to advanced subcortical and periventricular microangiopathic change. There is no hemorrhage, mass effect, or evidence of acute territorial ischemia by CT criteria. Fitzpatrick-white matter differentiation is preserved. No extra-axial fluid collection is seen. Ventricles, sulci, cisterns: Prominent secondary to involutional change. Intracranial vasculature: There is atherosclerotic calcification of the cavernous carotid arteries. Calvarium: Unremarkable. Sinuses and mastoids: The visualized paranasal sinuses are clear. The mastoid air cells are well pneumatized. Orbits: The bony orbits are grossly intact. IMPRESSION: There is no hemorrhage, mass effect, or evidence of acute territorial ischemia by CT criteria. ACT 112: Negative or not required by law. Electronically signed by: Dick Ness M.D. 04/22/2019 5:17 PM Dictated: 04/22/19 1715 ECG Additional Comments: Sinus rhythm at 69 bpm, first-degree AV block with VA = 214, QRS = 98, QTC = 452, normal axis, nonspecific ST changes Code Status & VTE Plan Code Status DNR/DNI per discussion with [id number]/POA VTE Prophylaxis Plan VTE Prophylaxis will be ordered: Yes PG Care Time/CCT Total # of Minutes Spent Total Time Spent with Patient: Total time spent is greater than 50% in coordination of care (as documented) at patient's floor/unit and/or counseling patient: Coding Level of Care Code 83411 Initial Inpt Care Lvl 3 Diagnoses Syncope R55 Syncope type: unspecified Elevated troponin R79.89 Chronic kidney disease, stage 3 (moderate) N18.3 Benign essential hypertension I10 Dementia F03.91 Dementia type: unspecified type Dementia behavioral disturbance: with behavioral disturbance Hyperlipidemia E78.5 Hyperlipidemia type: unspecified Severe aortic stenosis I35.0 (1) Syncope Syncope type: unspecified Qualified Code(s): R55 - Syncope and collapse (2) Dementia Dementia type: unspecified type Dementia behavioral disturbance: with behavioral disturbance Qualified Code(s): F03.91 - Unspecified dementia with behavioral disturbance (3) Hyperlipidemia Hyperlipidemia type: unspecified Qualified Code(s): E78.5 - Hyperlipidemia, unspecified
[2019-04-22] MEDS: POTASSIUM CHLORIDE / WTR 10 MEQ/100 ML PLCT IV SCH (22:56)
[2019-04-23] MEDS: POTASSIUM CHLORIDE / WTR 10 MEQ/100 ML PLCT IV SCH (00:52)
[2019-04-23 05:55] LABS: Basophils # (auto) 0.01 K/uL (0-0.2); Basophils % (auto) 0.1 %; Eosinophils # (auto) 0.22 K/uL (0-0.5); Eosinophils % (auto) 2.2 %; Hematocrit (blood only) 32.4 % (42-52); Hemoglobin 10.7 g/dL (14.0-18.0); Immature Granulocytes # (auto) 0.03 K/uL (0.00-0.02); Immature Granulocytes % (auto) 0.3 %; Lymphocytes # (auto) 2.52 K/uL (1.2-3.4); Lymphocytes % (auto) 25.7 %; Mean Corpuscular Hemoglobin 32.2 pg (25-34); Mean Corpuscular Volume 97.6 fL (80-100); Mean Platelet Volume 10.7 fL (7.4-10.4); Monocytes # (auto) 0.66 K/uL (0.11-0.59); Monocytes % (auto) 6.7 %; Neutrophils # (auto) 6.35 K/uL (1.4-6.5); Platelet Count 197 K/uL (130-400); RDW Standard Deviation 49.8 fL (36.4-46.3); Red Blood Count 3.32 M/uL (4.7-6.1); White Blood Count 9.79 K/uL (4.8-10.8)
[2019-04-23 06:32] LABS: BUN Creatinine Ratio 16.1 (10-20); Creatinine Clr Calc Pharmacy 51.8 ml/min; Est GFR (African American) 72.1; Est GFR (Non-African American) 62.2; Potassium 3.6 mmol/L (3.5-5.1)
[2019-04-23] MEDS ORDERED: lisinopriL 10 MG TAB PO SCH (09:00)
[2019-04-23] MEDS: DONEPEZIL HCL 5 MG TAB PO SCH (10:46)
[2019-04-23] MEDS: ASPIRIN 81 MG ECTAB PO SCH (10:46)
[2019-04-23] MEDS: FUROSEMIDE 40 MG TAB PO SCH (10:46)
[2019-04-23] MEDS: LACTATED RINGER'S 1,000 ML IV SCH (10:47)
[2019-04-23] MEDS: ENOXAPARIN INJ 40 MG/0.4 ML SYR SQ SCH (14:00)
--- NOTE | 2019-04-23 14:26 | XCELERA ---
[id number] [id number]
--- NOTE | 2019-04-23 14:27 | Electrocardiogram Report ---
Test Reason : Blood Pressure : / mmHG Vent. Rate : 064 BPM Atrial Rate : 064 BPM P-R Int : 216 ms QRS Dur : 096 ms QT Int : 422 ms P-R-T Axes : 066 034 113 degrees QTc Int : 435 ms Sinus rhythm with 1st degree A-V block Septal infarct , age undetermined Abnormal ECG No previous ECGs available Confirmed by Jesús Elena ([id number]) on 04/23/2019 2:26:49 PM Referred By: REFERRED SELF Confirmed By:Jesús Elena
--- NOTE | 2019-04-23 14:34 | Electrocardiogram Report ---
Test Reason : Blood Pressure : / mmHG Vent. Rate : 069 BPM Atrial Rate : 069 BPM P-R Int : 214 ms QRS Dur : 098 ms QT Int : 422 ms P-R-T Axes : 051 040 127 degrees QTc Int : 452 ms Sinus rhythm with 1st degree A-V block Septal infarct (cited on or before 22-APR-2019) Abnormal ECG When compared with ECG of 22-APR-2019 16:37, (unconfirmed) No significant change was found Confirmed by Jesús Elena ([id number]) on 04/23/2019 2:33:39 PM Referred By: REFERRED SELF Confirmed By:Jesús Elena
[2019-04-23] MEDS ORDERED: haloperidoL 1 MG TAB PO PRN (18:38)
[2019-04-23] MEDS ORDERED: HALOPERIDOL LACTATE 5 MG/ML 1 ML VIAL IM PRN (18:38)
--- NOTE | 2019-04-23 18:49 | Hospitalist Progress Note ---
Date of Service April 23, 2019 Assessment & Plan (1) Severe aortic stenosis: Last echocardiogram performed 05/10/2016 - severe calcific aortic stenosis. Echo today now with critical and valve area of 0.5cm2. His presenting chest pain and syncope are most likely 2nd to such. Cannot rule out dysrhythmia from his contributing to syncope as well. Stop lisinopril. If any BP control is needed then start BB. Leave lasix for now but follow volume status carefully. Spoke with Reji HIDALGO ([id number]). Family was aware of . Explained it is now critical in nature. They report he has had advancing dementia for years but much worse in the last 6 months. We discussed pros/cons, risks/benefits of TAVR. They would like to speak to cardiology and make final decision about intervention but they are leaning towards conservative measures. They understand he may not be a TAVR candidate any way. Will ask cardiology to see in am. Stop IV fluids. (2) Syncope: Likely due to critical . Cannot rule out dysrhythmia. Stop lisinopril in light of the critical . (3) Elevated troponin: Patient had chest pain at admission - pain easily could have been from . Cannot rule out ischemia from undiagnosed CAD. Trop peaked at 0.3. Either way he is asymptomatic at this time. Treat conservatively with low-dose asa for now. Poor candidate for invasive testing. (4) Chronic kidney disease, stage 3 (moderate): stop IV fluids repeat BMP am (5) Benign essential hypertension: STOP lisinopril If BP control is needed start beta hardeep (6) Dementia: for behavioral disturbance -- start risperdal 0.5mg HS scheduled haldol 1mg PO or IM prn for severe agitation cont aricept spoke with [id number]-- dementia present for 5+ years, and symptoms much worse in last 6 months she agrees he can't be alone at home any longer spoke with healthcare social worker - SNF placement with memory unit would be best (7) Hyperlipidemia: Chronic. Stable. Patient presently not on any medications (8) DVT prophylaxis: lovenox (9) Discharge planning issues: updated [id number]-sc-gjb questions answered discussed pt's care during multidisciplinary rounds today social work to assist with probable placement - pt needs 24/7 care due to dementia could consider palliative care consult if family elects for conservative Rx for aortic stenosis PT, OT evals Admission and Anticipated Discharge Date Admission Date: April 22, 2019 Subjective sinus bradycardia on tele overnight during my bedside rounds he was playing with his bedsheets and blankets could not offer any meaningful history or ROS very confused would laugh inappropriately Review of Systems Review of Systems: Unobtainable due to cognitive status Physical Exam Constitutional: average body habitus, + altered mental status and + disheveled; no acute distress ENMT: Mouth: + poor dentition; no oral mucosal abnormality Respiratory: normal respiratory effort, lungs clear to auscultation Auscultation: + diminished lung sounds (bases) Cardiovascular: Rate/Rhythm: regular rate and regular rhythm Heart Sounds: normal S1 and + murmur (4/6 holosystolic murmur heard loudest RUSB and apex; s2 not heard); + abnormal S2 (s2 not heard) Vessels: posterior tibial pulses present and dorsalis pedis pulses present; no JVD Extremities: no edema Gastrointestinal (Abdomen): Inspection/Auscultation: + abdomen distended (mild) and normal bowel sounds Percussion/Palpation: abdomen soft; abdomen nontender and no hepatosplenomegaly Neurologic: moves all extremities Psychiatric: Orientation: alert and oriented to person; + not oriented to place and + not oriented to time Results & Data ([facility]) Vital Signs (Past 12 Hours) Vital Signs Temp Pulse Pulse Resp BP Pulse Ox 04/23/19 18:39 36.5 C 77 20 158/66 H 92 04/23/19 16:03 53 L 04/23/19 14:56 36.5 C 58 L 20 156/68 H 96 04/23/19 14:07 67 159/71 H 04/23/19 14:06 58 L 155/63 H 04/23/19 14:05 36.4 C L 54 L 18 142/65 H 98 04/23/19 10:50 36.4 C L 49 L 16 123/65 97 04/23/19 07:32 36.8 C 51 L 18 107/55 L 95 04/23/19 07:24 53 L Laboratory Results Laboratory Results - last 24 hr 04/22/19 04/23/19 04/23/19 19:03 01:10 05:33 WBC 9.79 RBC 3.32 L Hgb 10.7 L Hct 32.4 L MCV 97.6 MCH 32.2 MCHC 33.0 RDW Std Deviation 49.8 H RDW Coeff of Rk 14.0 Plt Count 197 MPV 10.7 H Immature Gran % (Auto) 0.3 Neut % (Auto) 65.0 Lymph % (Auto) 25.7 [place] % (Auto) 6.7 Eos % (Auto) 2.2 Baso % (Auto) 0.1 Immature Gran # (Auto) 0.03 H Neut # (Auto) 6.35 Lymph # (Auto) 2.52 [place] # (Auto) 0.66 H Eos # (Auto) 0.22 Baso # (Auto) 0.01 Sodium Potassium Chloride Carbon Dioxide Anion Gap BUN Creatinine Est Cr Clr Drug Dosing Est GFR ( Amer) Est GFR (Non-Af Amer) BUN/Creatinine Ratio Glucose Calcium Phosphorus 2.3 L Troponin I 0.192 H* 0.337 H* 04/23/19 04/23/19 05:33 06:16 WBC RBC Hgb Hct MCV MCH MCHC RDW Std Deviation RDW Coeff of Rk Plt Count MPV Immature Gran % (Auto) Neut % (Auto) Lymph % (Auto) [place] % (Auto) Eos % (Auto) Baso % (Auto) Immature Gran # (Auto) Neut # (Auto) Lymph # (Auto) [place] # (Auto) Eos # (Auto) Baso # (Auto) Sodium 144 Potassium 3.6 Chloride 113 H Carbon Dioxide 27 Anion Gap 4.0 BUN 18 Creatinine 1.10 Est Cr Clr Drug Dosing 51.8 Est GFR ( Amer) 72.1 Est GFR (Non-Af Amer) 62.2 BUN/Creatinine Ratio 16.1 Glucose 81 Calcium 9.0 Phosphorus Troponin I 0.321 H* PG Care Time/CCT Total # of Minutes Spent Total Time Spent with Patient: Total time spent is greater than 50% in coordination of care (as documented) at patient's floor/unit and/or counseling patient: Coding Level of Care Code 80489 Subseq Hosp Care Lvl 3 Diagnoses Severe aortic stenosis I35.0 Syncope R55 Syncope type: unspecified Elevated troponin R79.89 Chronic kidney disease, stage 3 (moderate) N18.3 Benign essential hypertension I10 Dementia F03.91 Dementia type: unspecified type Dementia behavioral disturbance: with behavioral disturbance Hyperlipidemia E78.5 Hyperlipidemia type: unspecified DVT prophylaxis Z29.9 Discharge planning issues Z02.9 (1) Syncope Syncope type: unspecified Qualified Code(s): R55 - Syncope and collapse (2) Dementia Dementia type: unspecified type Dementia behavioral disturbance: with behavioral disturbance Qualified Code(s): F03.91 - Unspecified dementia with behavioral disturbance (3) Hyperlipidemia Hyperlipidemia type: unspecified Qualified Code(s): E78.5 - Hyperlipidemia, unspecified
[2019-04-23] MEDS ORDERED: risperiDONE ODT 0.5 MG SOLTAB PO SCH (21:00)
[2019-04-24] MEDS ORDERED: LORazepam 2 MG/4 ML VIAL IV ONE (02:15)
[2019-04-24] MEDS ORDERED: LORazepam 2 MG/4 ML VIAL ONE (02:19)
[2019-04-24] MEDS ORDERED: HALOPERIDOL LACTATE 5 MG/ML 1 ML VIAL IM ONE (02:30)
[2019-04-24] MEDS: DONEPEZIL HCL 5 MG TAB PO SCH (13:23)
[2019-04-24] MEDS: FUROSEMIDE 40 MG TAB PO SCH (13:24)
[2019-04-24] MEDS: ASPIRIN 81 MG ECTAB PO SCH (13:24)
--- NOTE | 2019-04-24 14:09 | Cardiology Consultation ---
Date of Consultation April 24, 2019 Assessment & Plan (1) Severe aortic stenosis: The patient now has critical aortic stenosis. Realizing his recent episode of syncope, the patient could be considered for a valve replacement. However, his significant dementia and combative state would favor conservative measures. (2) Benign essential hypertension: Adequate control on current medical regimen. (3) Hyperlipidemia: Not currently on a statin. (4) Elevated troponin: Mild elevation in troponin likely related to his severe aortic stenosis and moderate left ventricle hypertrophy. No further evaluation necessary. History of Present Illness Attending Physician: Denilson Walton History of Present Illness Mr. Garcia is an 84-year-old male who was admitted yesterday after a syncopal event. This consultation was ordered to assist in his management as the patient has known severe aortic stenosis. The history is obtained from the chart. The patient is currently obtunded and there are no family members available. He also has significant underlying dementia. In any event, the patient was walking with family yesterday when he stopped claiming that he could go no further. He then put his hand on his chest and was noted to turned ashen ponce. He was helped to the ground by his daughter and lawn. There was no trauma. The patient awoke after several minutes. There is no seizure activity nor post ictal state. The patient has known severe aortic stenosis. An echocardiogram performed yesterday noted a valve area of 0.5 cm2 by the continuity equation. His medications reviewed in detail. Past medical and surgical history 1. Critical aortic stenosis 2. Hypertension 3. Hypercholesterolemia 4. Moderate LVH 5. Chronic renal failure 6. Gout 7. Nephrolithiasis 8. Dementia 9. History of wrist surgery Social history or, lives alone No tobacco or alcohol Family history Noncontributory Review of systems Unobtainable Allergies Allergy/AdvReac Type Severity Reaction Status Date / Time No Known Allergies Allergy Verified 04/22/19 18:39 Home Medications Home Medications Medication Instructions Recorded Confirmed Type multivitamin 1 tab PO QAM #30 tab 11/06/18 04/22/19 Rx aspirin [Adult Low Dose Aspirin] 81 mg PO QAM 04/22/19 04/22/19 History donepezil 5 mg PO QAM 04/22/19 04/22/19 History furosemide 40 mg PO QAM 04/22/19 04/22/19 History lisinopril 30 mg PO QAM 04/22/19 04/22/19 History Patient History Social History Preferred Language: Maldivian Communication Ability: Impaired Visual Impairment: Limited Hearing Ability: Normal Client Service Representative Required: No Beliefs That Will Affect Care: None marital status: / Current Living Situation: Alone current occupational status: retired Feels Safe at Home: Yes Smoking Status: Unknown if ever smoked Hx Alcohol Use: No Hx Substance Use: No Childhood Exposure to Second-Hand Smoke: Yes caffeine: No during the past year weight has: remained stable Dental Care, Regularly: Yes Physical Activity Frequency: Does not Exercise Seatbelt Use: always Sunscreen Use: Yes Physical Exam Physical Exam: In general this is an elderly male lying supine in bed. He is in no acute distress but arousable. HEENT exam notes poor dentition. Neck is supple with delayed and prolonged carotid upstrokes. No obvious transmitted murmur. Jugular venous pressure is difficult to assess. Cardiovascular exam reveals a regular rhythm with distant heart sounds. A 3/6 crescendo decrescendo systolic murmur is heard loudest at the apex. S2 is not audible at the apex. Lungs are clear anteriorly. Abdomen is soft without bruits. Extremities reveal intact radial artery pulses bilaterally. There is no peripheral edema. Results & Data ([facility]) Vital Signs (Past 12 Hours) Vital Signs Temp Pulse Pulse Resp BP Pulse Ox 04/24/19 10:38 37.1 C 67 18 146/76 H 93 04/24/19 07:18 69 Laboratory Results CBC notes hemoglobin of 10.7, hematocrit 32.4, white count 9.79, platelet count [id number]. Electrolytes notice sodium 144, potassium 3.6, chloride 113, bicarb 27, BUN 18, creatinine 1.1, glucose of 81. Initial troponin was 0.041 with follow-up values of 0.192, 0.337, an 0.321. TSH level is normal at 3.49. Diagnostic Findings EKG notes sinus rhythm and left ventricular hypertrophy with repolarization changes. Chest x-ray shows cardiomegaly but no acute findings. Echocardiogram as described above. PG Care Time/CCT Total # of Minutes Spent Total Time Spent with Patient: Total time spent is greater than 50% in coordination of care (as documented) at patient's floor/unit and/or counseling patient: Coding Level of Care Code 12722 Initial Inpt Care Lvl 3 Diagnoses Severe aortic stenosis I35.0 Benign essential hypertension I10 Hyperlipidemia E78.5 Hyperlipidemia type: unspecified Elevated troponin R79.89 (1) Hyperlipidemia Hyperlipidemia type: unspecified Qualified Code(s): E78.5 - Hyperlipidemia, unspecified
[2019-04-24] MEDS: ENOXAPARIN INJ 40 MG/0.4 ML SYR SQ SCH (14:41)
[2019-04-24] MEDS ORDERED: haloperidoL 1 MG TAB PO PRN (18:49)
[2019-04-24] MEDS ORDERED: HALOPERIDOL LACTATE 5 MG/ML 1 ML VIAL IM PRN (18:49)
[2019-04-24] MEDS: SENNA 8.6 MG TAB PO SCH (20:27)
[2019-04-24] MEDS: RISPERIDONE ODT 1MG PO SCH (20:27)
--- NOTE | 2019-04-24 20:46 | Hospitalist Progress Note ---
Date of Service April 24, 2019 Assessment & Plan (1) Severe aortic stenosis: Last echocardiogram performed 05/10/2016 - severe calcific aortic stenosis. Echo now with critical and valve area of 0.5cm2. His presenting chest pain and syncope were most likely 2nd to critical . Cannot rule out dysrhythmia from his contributing to syncope as well. Stopped lisinopril. If any BP control is needed then start BB. Leave lasix for now but follow volume status carefully. Spoke with Reji HIDALGO ([id number]), yesterday and today. Updated her that cardiology formally saw patient and felt he was not a TAVR candidate. Thus, we will obtain formal palliative care consultation. Palliative care and pt's son / [id number] to meet tomorrow to discuss palliation. Life expectancy is likely <6months. care d/w cardiology today. (2) Syncope: Likely due to critical . Cannot rule out dysrhythmia. Stopped lisinopril in light of the critical . (3) Elevated troponin: Patient had chest pain at admission - pain easily could have been from . Trop peaked at 0.3. This was likely MYOCARDIAL DEMAND ISCHEMIA rather than true ACS. Either way he is asymptomatic at this time. Treat conservatively with low-dose asa for now. Very poor candidate for invasive testing. Not pursuing such. (4) Chronic kidney disease, stage 3 (moderate): baseline CrCL <60 (5) Benign essential hypertension: STOPPED lisinopril If BP control is needed start beta hardeep (6) Dementia: with behavioral disturbance -- started risperdal 0.5mg HS scheduled but needs higher dose increase to 1mg HS tonight increase haldol to 2mg PO or IM prn for severe agitation stop aricept - likely not helping his dementia spoke with [id number]-- dementia present for 5+ years, and symptoms much worse in last 6 months she agrees he can't be alone at home any longer SNF being planned (7) Hyperlipidemia: Chronic. Stable. Patient presently not on any medications (8) DVT prophylaxis: lovenox (9) Discharge planning issues: updated [id number] again today - questions answered discussed pt's care during multidisciplinary rounds today pt needs 24/7 care due to dementia palliative care consult placed PT, OT americo dispo planning Admission and Anticipated Discharge Date Admission Date: April 22, 2019 Subjective patient very confused during the visit. overnight was very agitated requiring ativan by hand shoe cutter. tendency to want to get up and walk per staff. during my visit he was smearing pudding all over his bedside tray. Review of Systems Review of Systems: Unobtainable due to mental health condition and Unobtainable due to cognitive status Physical Exam 2 Constitutional: average body habitus, + altered mental status and + disheveled; no acute distress ENMT: Mouth: + poor dentition; no oral mucosal abnormality Respiratory: normal respiratory effort, lungs clear to auscultation Auscultation: + diminished lung sounds (bases) Cardiovascular: Rate/Rhythm: regular rate and regular rhythm Heart Sounds: normal S1 and + murmur (4/6 holosystolic murmur heard loudest RUSB and apex; s2 not heard); + abnormal S2 (s2 not heard) Vessels: posterior tibial pulses present and dorsalis pedis pulses present; no JVD Extremities: no edema Gastrointestinal (Abdomen): Inspection/Auscultation: + abdomen distended (mild) and normal bowel sounds Percussion/Palpation: abdomen nontender and no hepatosplenomegaly Neurologic: moves all extremities Psychiatric: Orientation: alert and oriented to person; + not oriented to place and + not oriented to time Results & Data ([facility]) Vital Signs (Past 12 Hours) Vital Signs Temp Pulse Pulse Resp BP Pulse Ox 04/24/19 16:57 82 04/24/19 15:05 36.7 C 64 18 150/77 H 94 04/24/19 10:38 37.1 C 67 18 146/76 H 93 PG Care Time/CCT Total # of Minutes Spent Total Time Spent with Patient: Total time spent is greater than 50% in coordination of care (as documented) at patient's floor/unit and/or counseling patient: Coding Level of Care Code 73701 Subseq Hosp Care Lvl 3 Diagnoses Severe aortic stenosis I35.0 Syncope R55 Syncope type: unspecified Elevated troponin R79.89 Chronic kidney disease, stage 3 (moderate) N18.3 Benign essential hypertension I10 Dementia F03.91 Dementia behavioral disturbance: with behavioral disturbance Dementia type: unspecified type Hyperlipidemia E78.5 Hyperlipidemia type: unspecified DVT prophylaxis Z29.9 Discharge planning issues Z02.9 (1) Dementia Dementia behavioral disturbance: with behavioral disturbance Dementia type: unspecified type Qualified Code(s): F03.91 - Unspecified dementia with behavioral disturbance (2) Hyperlipidemia Hyperlipidemia type: unspecified Qualified Code(s): E78.5 - Hyperlipidemia, unspecified (3) Syncope Syncope type: unspecified Qualified Code(s): R55 - Syncope and collapse
[2019-04-25] MEDS: SENNA 8.6 MG TAB PO SCH (08:06)
[2019-04-25] MEDS: FUROSEMIDE 40 MG TAB PO SCH (08:07)
[2019-04-25] MEDS: ASPIRIN 81 MG ECTAB PO SCH (08:07)
[2019-04-25] MEDS: ENOXAPARIN INJ 40 MG/0.4 ML SYR SQ SCH (13:52)
--- NOTE | 2019-04-25 16:30 | Palliative Care Consultation ---
Date of Consultation April 25, 2019 Assessment & Plan (1) Goals of care, counseling/discussion: -84 year old male with significant dementia presented to the hospital several days ago with episode of syncope and loss of consciousness for several minutes. Upon arrival, patient's troponin was elevated. Echocardiogram shows CRITICAL aortic stenosis. Patient has known severe aortic stenosis for several years, but family opted for no surgery. Prior to arrival, patient was still living at home alone with daily family support for several hours a day. However, patient's cognitive status has been significantly declining over the last six months per the family. Patient is often found wandering the neighborhood, prompting neighbors to call the family for assistance. Since being in the hospital, patient is severely confused and agitated. He is difficult to reorient and he really is not able to participate in conversation. However, last evening he had a dose of Risperdal and it has helped tremendously. Cardiology was consulted for the critical , and due to patient's significant dementia and other comorbidities, as well as family preference, he is deemed to be a poor surgical candidate. Palliative care is consulted to discuss goals of care. -Met with patient, his weywyktf-zs-pis, Reji (who is POA), and son Tiffanie. -Patient is pleasantly confused today, totally unable to participate in meaningful conversation. -Per Reji and Tiffanie, they would like conservative, medical management of mary calles's condition. No surgical intervention. We discussed what to expect with critical in the future: chest pain, heart failure, syncopal episodes, etc. Family verbalizes understanding and state that if patient continues to experience these types of episodes, they do not want him to continue returning to the hospital, but would rather focus on comfort. -Discussed discharge planning. Given patient's severe cognitive decline, the decision has been made to pursue placement at SNF. HE will go under skilled benefit initially, then transition to long-term residency and possibly even add hospice care in at that time. WE discussed hospice care at length. -No symptom management needs at this time, but would utilize Roxanol PRN for chest pain or SOB. -Confirmed DNR status. -Dr. Walton present for some of family meeting. Also updated case management who will assist with referrals to SNF. -PPS 50%. FAST scale 6c. Does having occasional urinary incontinence. (2) Syncope: Syncope type: unspecified Qualified Code(s): R55 - Syncope and collapse (3) Severe aortic stenosis: (4) Dementia: Dementia type: unspecified type Dementia behavioral disturbance: with behavioral disturbance Qualified Code(s): F03.91 - Unspecified dementia with behavioral disturbance History of Present Illness Attending Physician: Denilson Walton History of Present Illness This 84 year old male with significant dementia presented to the hospital several days ago with episode of syncope and loss of consciousness for several minutes. Upon arrival, patient's troponin was elevated. Echocardiogram shows CRITICAL aortic stenosis. Patient has known severe aortic stenosis for several years, but family opted for no surgery. Prior to arrival, patient was still living at home alone with daily family support for several hours a day. However, patient's cognitive status has been significantly declining over the last six months per the family. Patient is often found wandering the neighborhood, prompting neighbors to call the family for assistance. Since being in the hospital, patient is severely confused and agitated. He is difficult to reorient and he really is not able to participate in conversation. However, last evening he had a dose of Risperdal and it has helped tremendously. Cardiology was consulted for the critical , and due to patient's significant dementia and other comorbidities, as well as family preference, he is deemed to be a poor surgical candidate. Palliative care is consulted to discuss goals of care. Allergies Allergy/AdvReac Type Severity Reaction Status Date / Time No Known Allergies Allergy Verified 04/22/19 18:39 Home Medications Home Medications Medication Instructions Recorded Confirmed Type multivitamin 1 tab PO QAM #30 tab 11/06/18 04/22/19 Rx aspirin [Adult Low Dose Aspirin] 81 mg PO QAM 04/22/19 04/22/19 History furosemide 40 mg PO QAM 04/22/19 04/22/19 History lisinopril 30 mg PO QAM 04/22/19 04/22/19 History donepezil 5 mg tablet 5 mg PO QAM #90 tab 04/26/19 Rx Patient History Social History Preferred Language: Jordanian Communication Ability: Impaired Visual Impairment: Limited Hearing Ability: Normal Customer Service Supervisor Required: No Beliefs That Will Affect Care: None marital status: / Current Living Situation: Alone current occupational status: retired Feels Safe at Home: Yes Smoking Status: Unknown if ever smoked Hx Alcohol Use: No Hx Substance Use: No Childhood Exposure to Second-Hand Smoke: Yes caffeine: No during the past year weight has: remained stable Dental Care, Regularly: Yes Physical Activity Frequency: Does not Exercise Seatbelt Use: always Sunscreen Use: Yes Review of Systems Review of Systems: Unobtainable due to cognitive status Physical Exam Constitutional: + frail appearing; no acute distress ENMT: external ear and nose normal, oropharynx normal Respiratory: normal respiratory effort, lungs clear to auscultation Cardiovascular: Rate/Rhythm: regular rate and regular rhythm Extremities: + edema (BLE) Gastrointestinal (Abdomen): Inspection/Auscultation: normal bowel sounds Percussion/Palpation: abdomen soft Neurologic: moves all extremities, awake and + confused Psychiatric: Orientation: alert and oriented to person; + not oriented to place and + not oriented to time Results & Data Vital Signs (Past 12 Hours) Vital Signs Temp Pulse Resp BP Pulse Ox 04/25/19 15:15 72 16 151/65 H 91 04/25/19 07:17 36.4 C L 65 16 134/70 99 PG Care Time/CCT Total # of Minutes Spent Total Time Spent with Patient: Total time spent is greater than 50% in coordination of care (as documented) at patient's floor/unit and/or counseling patient: 70 minutes Coding Level of Care Code 57623 Inpt Consult Level 3 Diagnoses Goals of care, counseling/discussion Z71.89 Syncope R55 Syncope type: unspecified Severe aortic stenosis I35.0 Dementia F03.91 Dementia type: unspecified type Dementia behavioral disturbance: with behavioral disturbance Time Spent (min) 70
[2019-04-25] MEDS: RISPERIDONE ODT 1MG PO SCH (20:56)
--- NOTE | 2019-04-25 21:39 | Hospitalist Progress Note ---
Date of Service April 25, 2019 Assessment & Plan (1) Severe aortic stenosis: Echo with critical and valve area of 0.5cm2. His presenting chest pain and syncope were most likely 2nd to critical . Cannot rule out dysrhythmia from his contributing to syncope as well. Stopped lisinopril. If any BP control is needed then start BB. Leave lasix for now. Spoke with GWEN Reji Garcia ([id number]), multiple times this week and at bedside today (along with the pt's son). They are aware cardiology has stated he is NOT a TAVR candidate. Palliative care consultation appreciated. Family agreeable to transition to hospice in the near-future. I discussed the natural history of that is of critical nature. Life expectancy is likely <6months. (2) Syncope: Likely due to critical . Cannot rule out dysrhythmia. Stopped lisinopril in light of the critical . (3) Elevated troponin: Patient had chest pain at admission - pain easily could have been from . Trop peaked at 0.3. This was likely MYOCARDIAL DEMAND ISCHEMIA rather than true ACS. Very poor candidate for invasive testing. Not pursuing such. (4) Chronic kidney disease, stage 3 (moderate): baseline CrCL <60 (5) Benign essential hypertension: STOPPED lisinopril If BP control is needed start beta hardeep (6) Dementia: with behavioral disturbance -- marked improvement with 1mg of risperdal at HS. haldol prn but has not required such in 24+ hours. stopped aricept - likely not helping his dementia spoke with [id number]-- dementia present for 5+ years, and symptoms much worse in last 6 months she agrees he can't be alone at home any longer SNF being planned (7) Hyperlipidemia: Chronic. Stable. Patient presently not on any medications (8) DVT prophylaxis: lovenox (9) Discharge planning issues: SNF at d/c ultimate transition to hospice palliative care consult appreciated PT, TONNY driscoll care discussed at Multidisciplinary rounds today Admission and Anticipated Discharge Date Admission Date: April 22, 2019 Subjective patient much more calm today, smiling, more directable. no agitation. staff report he slept much better overnight and did not require any prn haldol or ativan. unable to obtain any ROS or history from patient due to advanced dementia. family meeting held with son, daughter in law, and Ruby from palliative care. I joined this conversation for about 10 minutes. Review of Systems Review of Systems: Unobtainable due to mental health condition and Unobtainable due to cognitive status Physical Exam Constitutional: average body habitus and + altered mental status; no acute distress ENMT: Mouth: + poor dentition; no oral mucosal abnormality Respiratory: normal respiratory effort, lungs clear to auscultation Auscultation: + diminished lung sounds (bases) Cardiovascular: Rate/Rhythm: regular rate and regular rhythm Heart Sounds: normal S1 and + murmur (4/6 holosystolic murmur heard loudest RUSB and apex; s2 not heard); + abnormal S2 (s2 not heard) Vessels: posterior tibial pulses present and dorsalis pedis pulses present; no JVD Extremities: no edema Gastrointestinal (Abdomen): Inspection/Auscultation: normal bowel sounds; abdomen not distended Percussion/Palpation: abdomen soft; abdomen nontender and no hepatosplenomegaly Neurologic: moves all extremities Psychiatric: Orientation: alert and oriented to person; + not oriented to place and + not oriented to time Results & Data ([facility]) Vital Signs (Past 12 Hours) Vital Signs Pulse Resp BP Pulse Ox 04/25/19 15:15 72 16 151/65 H 91 PG Care Time/CCT Total # of Minutes Spent Total Time Spent with Patient: Total time spent is greater than 50% in coordination of care (as documented) at patient's floor/unit and/or counseling patient: Coding Level of Care Code 40087 Subseq Hosp Care Lvl 2 Diagnoses Severe aortic stenosis I35.0 Syncope R55 Syncope type: unspecified Elevated troponin R79.89 Chronic kidney disease, stage 3 (moderate) N18.3 Benign essential hypertension I10 Dementia F03.91 Dementia behavioral disturbance: with behavioral disturbance Dementia type: unspecified type Hyperlipidemia E78.5 Hyperlipidemia type: unspecified DVT prophylaxis Z29.9 Discharge planning issues Z02.9 (1) Dementia Dementia behavioral disturbance: with behavioral disturbance Dementia type: unspecified type Qualified Code(s): F03.91 - Unspecified dementia with behavioral disturbance (2) Hyperlipidemia Hyperlipidemia type: unspecified Qualified Code(s): E78.5 - Hyperlipidemia, unspecified (3) Syncope Syncope type: unspecified Qualified Code(s): R55 - Syncope and collapse
[2019-04-26] MEDS: SENNA 8.6 MG TAB PO SCH (13:42)
[2019-04-26] MEDS: ASPIRIN 81 MG ECTAB PO SCH (13:42)
[2019-04-26] MEDS: FUROSEMIDE 40 MG TAB PO SCH (13:42)
[2019-04-26] MEDS: ENOXAPARIN INJ 40 MG/0.4 ML SYR SQ SCH (13:43)
[2019-04-26] MEDS: RISPERIDONE ODT 1MG PO SCH (21:04)
--- NOTE | 2019-04-26 21:44 | Hospitalist Progress Note ---
Date of Service April 26, 2019 Assessment & Plan (1) Severe aortic stenosis: Echo with critical and valve area of 0.5cm2. His presenting chest pain and syncope were most likely 2nd to critical . Cannot rule out dysrhythmia from his contributing to syncope as well. Stopped lisinopril. BPs thus far ok without the MAIK. Leave lasix for now. Spoke with GWEN Reji Garcia ([id number]), multiple times this week and at bedside 04/25/2019 (along with the pt's son). They are aware cardiology has stated he is NOT a TAVR candidate. Palliative care consultation appreciated. Family agreeable to transition to hospice in the near-future. I discussed the natural history of that is of critical nature. Life expectancy is likely <6months. (2) Syncope: Likely due to critical . Cannot rule out dysrhythmia. Stopped lisinopril in light of the critical . Tele had been normal prior to stopping cardiac monitoring. (3) Elevated troponin: Patient had chest pain at admission - pain easily could have been from . Trop peaked at 0.3. This was likely MYOCARDIAL DEMAND ISCHEMIA rather than true ACS. Very poor candidate for invasive testing. Not pursuing such. (4) Chronic kidney disease, stage 3 (moderate): baseline CrCL <60 (5) Benign essential hypertension: STOPPED lisinopril If BP control is needed start beta hardeep BPs, however, remain acceptable (6) Dementia: with behavioral disturbance -- marked improvement with 1mg of risperdal at HS. haldol prn but has not required such in 48+ hours. stopped aricept - likely not helping his dementia spoke with [id number]-[id number]-- dementia present for 5+ years, and symptoms much worse in last 6 months she agrees he can't be alone at home any longer SNF being planned (7) Hyperlipidemia: Chronic. Stable. Patient presently not on any medications (8) DVT prophylaxis: lovenox (9) Discharge planning issues: SNF at d/c - likely [facility] in [place] ultimate transition to hospice palliative care consult appreciated PT, OT evals care discussed at Multidisciplinary rounds today Admission and Anticipated Discharge Date Admission Date: April 22, 2019 Subjective patient still requiring 1:1 not because of combativeness but he likes to walk around his room during the visit he was looking out the window, occasionally laughing, etc staff report he slept 3 hours overnight eating fair Review of Systems Review of Systems: Unobtainable due to mental health condition Physical Exam Constitutional: + altered mental status; no acute distress Respiratory: normal respiratory effort, lungs clear to auscultation Cardiovascular: Rate/Rhythm: regular rate and regular rhythm Heart Sounds: normal S1, normal S2 and + murmur (3-4/6 RUSB) Vessels: posterior tibial pulses present and dorsalis pedis pulses present; no JVD Extremities: + edema (trace b/l ) Psychiatric: Orientation: alert; + not oriented x 3 PG Care Time/CCT Total # of Minutes Spent Total Time Spent with Patient: Total time spent is greater than 50% in coordination of care (as documented) at patient's floor/unit and/or counseling patient: Coding Level of Care Code 86184 Subseq Hosp Care Lvl 2 Diagnoses Severe aortic stenosis I35.0 Syncope R55 Syncope type: unspecified Elevated troponin R79.89 Chronic kidney disease, stage 3 (moderate) N18.3 Benign essential hypertension I10 Dementia F03.91 Dementia behavioral disturbance: with behavioral disturbance Dementia type: unspecified type Hyperlipidemia E78.5 Hyperlipidemia type: unspecified DVT prophylaxis Z29.9 Discharge planning issues Z02.9 (1) Dementia Dementia behavioral disturbance: with behavioral disturbance Dementia type: unspecified type Qualified Code(s): F03.91 - Unspecified dementia with behavioral disturbance (2) Hyperlipidemia Hyperlipidemia type: unspecified Qualified Code(s): E78.5 - Hyperlipidemia, unspecified (3) Syncope Syncope type: unspecified Qualified Code(s): R55 - Syncope and collapse
[2019-04-27] MEDS: ASPIRIN 81 MG ECTAB PO SCH (09:08)
[2019-04-27] MEDS: FUROSEMIDE 40 MG TAB PO SCH (09:09)
[2019-04-27] MEDS: SENNA 8.6 MG TAB PO SCH (09:09)
[2019-04-27] MEDS: ENOXAPARIN INJ 40 MG/0.4 ML SYR SQ SCH (12:46)
--- NOTE | 2019-04-27 18:34 | Hospitalist Progress Note ---
Date of Service April 27, 2019 Assessment & Plan (1) Severe aortic stenosis: Echo with critical and valve area of 0.5cm2. His presenting chest pain and syncope were most likely 2nd to critical . Cannot rule out dysrhythmia from his contributing to syncope as well. Stopped lisinopril. Cont lasix. Spoke with GWEN Reji Jose ([id number]), multiple times this week and at bedside 04/25/2019 (along with the pt's son). They are aware cardiology has stated he is NOT a TAVR candidate. Palliative care consultation appreciated. Family agreeable to transition to hospice in the near-future. I discussed the natural history of that is of critical nature. Life expectancy is likely <6months. (2) Syncope: Likely due to critical . Cannot rule out dysrhythmia. Stopped lisinopril in light of the critical . Tele had been normal prior to stopping cardiac monitoring. No further syncopal events. (3) Elevated troponin: Patient had chest pain at admission - pain easily could have been from . Trop peaked at 0.3. This was likely MYOCARDIAL DEMAND ISCHEMIA rather than true ACS. (4) Chronic kidney disease, stage 3 (moderate): baseline CrCL <60 plan to recheck BMP this weekend for stability (5) Benign essential hypertension: STOPPED lisinopril If BP control is needed start beta hardeep BPs, however, cont to remain acceptable (6) Dementia: with behavioral disturbance -- marked improvement with 1mg of risperdal at HS. haldol prn but has not required such in 72+ hours. stopped aricept - likely not helping his dementia spoke with elgldfgw-[id number]-ynz-- dementia present for 5+ years, and symptoms much worse in last 6 months she agrees he can't be alone at home any longer SNF being planned due to poor sleep will increase risperdal to 1.5mg at HS (7) Hyperlipidemia: Chronic. Stable. Patient presently not on any medications (8) DVT prophylaxis: lovenox (9) Discharge planning issues: [facility] in [place] has accepted patient awaiting auth from insurance cont PT, OT ultimate transition to hospice while at SNF palliative care consult appreciated care discussed at Multidisciplinary rounds once again today Admission and Anticipated Discharge Date Admission Date: April 22, 2019 Subjective patient sitting on edge of bed with sitter in the room during my visit he was smiling, talking (although sentences are disjointed and don't make any sense) staff report only slept a few hours overnight once again no combativeness Review of Systems Review of Systems: Unobtainable due to mental health condition and Unobtainable due to cognitive status Physical Exam Constitutional: average body habitus and + altered mental status; no acute distress ENMT: Mouth: + poor dentition; no oral mucosal abnormality Respiratory: normal respiratory effort, lungs clear to auscultation Auscultation: + diminished lung sounds (bases) Cardiovascular: Rate/Rhythm: regular rate and regular rhythm Heart Sounds: normal S1, normal S2 and + murmur (3-4/6 RUSB) Vessels: posterior tibial pulses present and dorsalis pedis pulses present; no JVD Extremities: + edema (<1+ b/l ) Gastrointestinal (Abdomen): Inspection/Auscultation: normal bowel sounds; abdomen not distended Percussion/Palpation: abdomen soft; abdomen nontender and no hepatosplenomegaly Neurologic: moves all extremities Psychiatric: Orientation: alert and oriented to person; + not oriented x 3, + not oriented to place and + not oriented to time Results & Data ([facility]) Vital Signs (Past 12 Hours) Vital Signs Temp Pulse Resp BP Pulse Ox 04/27/19 15:12 36.3 C L 73 17 136/72 98 04/27/19 07:52 36.1 C L 89 18 137/71 93 PG Care Time/CCT Total # of Minutes Spent Total Time Spent with Patient: Total time spent is greater than 50% in coordination of care (as documented) at patient's floor/unit and/or counseling patient: Coding Level of Care Code 28129 Subseq Hosp Care Lvl 2 Diagnoses Severe aortic stenosis I35.0 Syncope R55 Syncope type: unspecified Elevated troponin R79.89 Chronic kidney disease, stage 3 (moderate) N18.3 Benign essential hypertension I10 Dementia F03.91 Dementia behavioral disturbance: with behavioral disturbance Dementia type: unspecified type Hyperlipidemia E78.5 Hyperlipidemia type: unspecified DVT prophylaxis Z29.9 Discharge planning issues Z02.9 (1) Dementia Dementia behavioral disturbance: with behavioral disturbance Dementia type: unspecified type Qualified Code(s): F03.91 - Unspecified dementia with behavioral disturbance (2) Hyperlipidemia Hyperlipidemia type: unspecified Qualified Code(s): E78.5 - Hyperlipidemia, unspecified (3) Syncope Syncope type: unspecified Qualified Code(s): R55 - Syncope and collapse
[2019-04-27] MEDS: RISPERIDONE ODT 1MG PO SCH (20:25)
[2019-04-27] MEDS ORDERED: risperiDONE ODT 0.5 MG SOLTAB PO SCH (21:00)
[2019-04-28] MEDS: SENNA 8.6 MG TAB PO SCH (14:12)
[2019-04-28] MEDS: ASPIRIN 81 MG ECTAB PO SCH (14:12)
[2019-04-28] MEDS: FUROSEMIDE 40 MG TAB PO SCH (14:12)
[2019-04-28] MEDS: ENOXAPARIN INJ 40 MG/0.4 ML SYR SQ SCH (14:13)
--- NOTE | 2019-04-28 15:33 | Discharge Summary ---
Date of Service date of admission - April 22, 2019 date of discharge - April 28, 2019 Admission HPI Per Admitting Provider Kael Garcia is an 84yo male with hypertension, CKD, hyperlipidemia, aortic stenosis and severe dementia. He presents today with his family after having a syncopal event at home. Patient was walking around the neighborhood with his son and [id number]. He stated he could not walk any further and put his hand on his chest. Then he reportedly turned ponce and collapsed. His fgthnxto-wr-kkn was able to catch him and lowered him gently to the ground. Patient did not hit his head. He had loss of consciousness for about 5 to 10 minutes. No seizure activity or incontinence reported. Patient has no recollection of this event and is unable to provide details of history. Patient has fairly severe dementia, MOCA score of 5 in the past. He is to undergo more in-depth evaluation with neurology at the end of the month. Presently, he lives at home alone. He has support of family members. His xmzapfvu-lc-vna reports that he wanders around the neighborhood fairly frequently. On arrival to the ER he was found to be afebrile, hemodynamically stable. He became acutely combative in the ER requiring Haldol and Ativan ER course: Aspirin 325 mg, Haldol 2.5 mg IV, Ativan 2 mg IV, normal saline x500 mL bolus Principal Diagnosis critical aortic stenosis Discharge Exam Constitutional average body habitus and + altered mental status (baseline ); no acute distress ENMT Mouth: + poor dentition; no oral mucosal abnormality Respiratory normal respiratory effort, lungs clear to auscultation Auscultation: + diminished lung sounds (bases) Cardiovascular Rate/Rhythm: regular rate and regular rhythm Heart Sounds: normal S1, normal S2 and + murmur (3-4/6 RUSB) Vessels: posterior tibial pulses present and dorsalis pedis pulses present; no JVD Extremities: + edema (<1+ b/l ) Gastrointestinal (Abdomen) Inspection/Auscultation: normal bowel sounds; abdomen not distended Percussion/Palpation: abdomen soft; abdomen nontender and no hepatosplenomegaly Neurologic moves all extremities Psychiatric Orientation: alert and oriented to person; + not oriented to place and + not oriented to time Discharge Data Allergies Allergy/AdvReac Type Severity Reaction Status Date / Time No Known Allergies Allergy Verified 03/08/20 18:39 Consultations [facility] Palliative Care PT, OT Ordered Studies CT head/brain wo con - IMPRESSION: There is no hemorrhage, mass effect, or evidence of acute terr itorial ischemia by CT criteria. Echocardiogram - * EF 65-70% * critical aortic stenosis - valve area 0.5cm^2 Hospital Course (1) Severe aortic stenosis: Echo with critical and valve area of 0.5cm^2. His presenting chest pain and syncope were most likely 2nd to critical . Cannot rule out dysrhythmia from his contributing to syncope as well but much less likely. He was taking lisinopril at time of admission -- this was discontinued. He was continued on lasix. Cardiology was consulted and they felt he was not a TAVR (valve replacement) candidate. Palliative care consultation was then obtained. The palliative care team met with the patient's son and foclgzqz-zk-fof. Family was agreeable to transition to hospice in the very near-future. The natural history of critical aortic stenosis was discussed with the family and they were counseled that his life expectancy is likely <6 months. They were counseled that he is at risk of CHF, arrhythmia, chest pain, and recurrent syncope with how severe the aortic stenosis is. If blood pressures become elevated at the skilled nursing would advise to initiate a small dose of twice daily metoprolol tartrate. MAIK, ARB, and calcium channel blockers (norvasc) would be contraindicated. (2) Syncope: Likely due to critical aortic stenosis (). Cannot rule out dysrhythmia but much less likely. Stopped lisinopril in light of the critical . Telemetry was normal while here. He had no recurrent syncopal episodes during his stay. (3) Elevated troponin: Patient had chest pain at admission - pain was likely from his critical aortic stenosis. Trop peaked at 0.3. Troponin elevation was MYOCARDIAL DEMAND ISCHEMIA rather than true ACS. (4) Chronic kidney disease, stage 3 (moderate): baseline CrCL <60 baseline Cr 1.1 (5) Benign essential hypertension: STOPPED lisinopril. If BP control is needed start beta hardeep (e.g. metoprolol 12.5mg BID). BPs, however, were acceptable off the lisinopril while here. (6) Dementia: Severe, progressive. Patient had behavioral disturbance early on in his stay. Had marked improvement with risperdal at HS. Risperdal was titrated to 1.5mg at bedtime; will d/c to SNF on this dose. Stopped aricept - likely not helping his dementia. Iuqozkeg-lp-ypa reported his dementia had been present for 5+ years with symptoms much worse in last 6 months. Family in agreement that placing Mr Garcia in a skilled memory unit was necessary. Baseline mental status - oriented to person only. (7) Hyperlipidemia: history of. not taking medication for such. (8) Chronic rhinitis: Consider astelin or astepro nasal spray along with claritin or alicia for this chronic issue. (9) Discharge planning issues: [facility] in [place], [place], accepted patient (10) Goals of care, counseling/discussion: See "severe aortic stenosis" above. Upon admission to SNF the patient should be seen by palliative care and ultimately he will transition to hospice in the near-future. Total Time Total Time Spent Total Time Spent (In Minutes): 45 Total Time Includes: Examination of the Patient, Discharge Planning and Medication Reconciliation Discharge Plan Discharge Items Patient Disposition: Transfer [facility] Fac Reason For Visit: SYNCOPE Discharge Diagnosis: 1. syncope (passing out spell) - likely 2nd to severe/critical aortic stenosis (narrowing of the aortic valve) 2. severe, progressive dementia Activity: Resume your previous activity Non-emergency contact: Primary Care Provider Call non-emergency contact if: you have any medication questions Follow-up/Referrals: Cristina Eden DO [Primary Care Provider] - Diet: Regular Diet Texture: Easy to Chew Addtl Attending Provider Instructions: Mr Garcia was admitted for an episode of chest pain and syncope (passing out) which was likely due to severe/critical aortic stenosis. He was seen by cardiology and felt NOT to be a candidate for heart valve replacement. He has severe, progressive, end-stage dementia. At baseline he is oriented to person only. When speaking most of his sentences do not make sense or are not related to one another. A palliative care discussion was held several days prior to discharge. Son and nuxwangs-km-ldg are in agreement with DNR status and transition to HOSPICE in the near-future. Upon admission to the skilled nursing please consult palliative care to begin the transition to HOSPICE. Family does not desire aggressive care for Mr Garcia. Recommend a BMP with magnesium in 2 days; results to medical insurance claims processor please. Pending Studies at Discharge: No Stand-Alone Forms: My [facility] Skilled Items Patient informed of condition?: No DNR: Yes Discharge Level of Care: Skilled Communicable Disease: No Discharge Prognosis: Other Lines: None Urinary Catheter: No Medications and DC Order Prescriptions: New risperidone 1 mg Tablet,Disintegrating 1 mg PO HS Qty: 30 RF: 11 risperidone 0.5 mg Tablet,Disintegrating 0.5 mg PO HS Qty: 30 RF: 11 sennosides [Senokot] 8.6 mg Tablet 17.2 mg PO QAM Qty: 60 RF: 2 potassium chloride 10 mEq tablet extended release 10 meq PO DAILY Qty: 30 RF: 2 Continued multivitamin [Multiple Vitamins] tablet 1 tab PO QAM Qty: 30 RF: 0 furosemide 40 mg tablet 40 mg PO QAM RF: 0 aspirin [Adult Low Dose Aspirin] 81 mg tablet,delayed release (DR/EC) 81 mg PO QAM RF: 0 Discontinued donepezil 5 mg tablet 5 mg PO QAM Qty: 90 RF: 1 lisinopril 30 mg tablet 30 mg PO QAM RF: 0 Discharge Orders: Discharge Order (Routine); Ordered 04/28/19 Ordered By: Denilson Walton Admission Data Admit Date/Time: 04/22/19 21:19 Attending Provider: Denilson Walton Admit Provider: Nicki Richmond Primary Care Provider: Cristina Eden. Other Providers: Nicki Richmond ; Gume Reese ; Griselda Bill ; [facility] Other Interventions: Discharge Summary Assessment (RN) Last Done: 04/28/19 15:25 Coding Level of Care Code D/C Day Management >30 mins Diagnoses Severe aortic stenosis I35.0 Syncope R55 Syncope type: unspecified Elevated troponin R79.89 Chronic kidney disease, stage 3 (moderate) N18.3 Benign essential hypertension I10 Dementia F03.91 Dementia behavioral disturbance: with behavioral disturbance Dementia type: unspecified type Hyperlipidemia E78.5 Hyperlipidemia type: unspecified Chronic rhinitis J31.0 Discharge planning issues Z02.9 Goals of care, counseling/discussion Z71.89
== END 2019-04-28 16:30 | DRG 307 ==
LOC: ED 16:32 → 2W 21:19 → SUATTDRO 21:19 → 2W 21:40 → 4W 04-27 22:15